=== PATIENT | male | born 1940 | race Caucasian/White ===

== ENCOUNTER 2017-11-15 20:58 | Emergency (ER) | payer MEDICARE, BC ==
[2017-11-15 21:05] VITALS: RESP 18
[2017-11-15] MEDS ORDERED: IBUPROFEN 600 MG TAB PO STA (21:29)
[2017-11-15] MEDS ORDERED: SODIUM CHLORIDE 0.9% 500 ML IV STA (21:29)
[2017-11-15] MEDS ORDERED: SODIUM CHLORIDE 0.9% 1,000 ML IV STA ×2 (21:29)
[2017-11-15] MEDS: ACETAMINOPHEN TAB 500 MG TAB PO STA ×2 (21:42→21:43)
[2017-11-15 21:54] LABS: Basophils # (A) 0.1 k/uL (0-0.2); Basophils % (A) 1 %; Eosinophils % (A) 0 %; HCT 48.1 % (39.0-53.0); Lymphocytes # (A) 0.6 k/uL (1.0-4.8); Lymphocytes % (A) 6 %; MCH 30.3 pg (25.0-35.0); MCHC 33.1 g/dL (31.0-37.0); MCV 91.3 fL (80.0-100.0); Mean Platelet Volume 7.4; Monocytes # (A) 0.6 k/uL (0-1.0); Monocytes % (A) 7 %; Neutrophils # (A) 7.5 k/uL (1.3-7.7); Neutrophils % (A) 83 %; Platelet Count 135 k/uL (150-450); RBC 5.27 m/uL (4.30-5.90); RDW 15.6 % (11.5-15.5)
--- NOTE | 2017-11-15 22:00 | XR ---
EXAMINATION: XR chest 2V DATE AND TIME: 11/15/2017 9:55 PM ORDERING PROVIDER: Anjum Abdi DO CLINICAL INDICATION: Weakness TECHNIQUE: PA and lateral COMPARISON: None. DESCRIPTION: Sternal sutures and mediastinal clips and cardiac valve prosthesis noted. The lungs are clear. The pleural spaces are negative. The cardiac silhouette is mildly enlarged. The mediastinal silhouette is notable for tortuosity of th e thoracic aorta. The skeletal structures are intact without focal findings. The soft tissues are unremarkable. IMPRESSION: NO ACUTE PROCESS.
[2017-11-15 22:03] LABS: ALT 66 U/L (21-72); AST 69 U/L (17-59); Alkaline Phosphatase 62 U/L (38-126); Anion Gap 10 mmol/L; Blood Urea Nitrogen 24 mg/dL (9-20); Calcium 9.4 mg/dL (8.4-10.2); Carbon Dioxide 22 mmol/L (22-30); Chloride 105 mmol/L (98-107); Glucose 113 mg/dL (74-99); Magnesium 2.2 mg/dL (1.6-2.3); Phosphorus 3.2 mg/dL (2.5-4.5); Potassium 4.3 mmol/L (3.5-5.1); Sodium 137 mmol/L (137-145); Total Bilirubin 0.9 mg/dL (0.2-1.3); Total Protein 7.1 g/dL (6.3-8.2)
--- NOTE | 2017-11-15 22:04 | ED ---
General Adult HPI - General Chief complaint: Weakness Stated complaint: Weakness Time Seen by Provider: 11/15/17 21:19 Source: patient Mode of arrival: wheelchair Limitations: no limitations - Related Data Home Medications Medication Instructions Recorded Confirmed Sumit Cavanaugha 450 mg PO DAILY 11/15/17 11/15/17 Ezetimibe [Zetia] 10 mg PO HS 11/15/17 11/15/17 Lisinopril [Zestril] 5 mg PO HS 11/15/17 11/15/17 Multivitamins, Thera [Multivitamin 1 tab PO DAILY 11/15/17 11/15/17 (formulary)] Previous Rx's Medication Instructions Recorded Acetaminophen Tab [Tylenol Tab] 500 mg PO Q6H PRN #60 tablet 11/15/17 Acetaminophen with Codeine 1 tab PO Q4H PRN #20 tab 11/15/17 [Tylenol w/codeine #3] Ibuprofen [Motrin] 600 mg PO Q8HR PRN #20 tab 11/15/17 Allergies Allergy/AdvReac Type Severity Reaction Status Date / Time Penicillins Allergy Unknown Verified 11/15/17 21:25 Review of Systems ROS Statement: Those systems with pertinent positive or pertinent negative responses have been documented in the HPI. ROS Other: All systems not noted in ROS Statement are negative. Past Medical History Past Medical History: Hypertension Additional Past Medical History / Comment(s): aortic aneursym, gout. History of Any Multi-Drug Resistant Organisms: None Reported Past Surgical History: Coronary Bypass/CABG Additional Past Surgical History / Comment(s): back, valve replacement. Past Psychological History: No Psychological Hx Reported Smoking Status: Former smoker Past Alcohol Use History: Rare Past Drug Use History: None Reported General Exam Limitations: no limitations Course Vital Signs 11/15/17 11/15/17 11/15/17 21:00 22:45 22:54 Temperature 102.7 F H 99.6 F Pulse Rate 108 H 98 Pulse Rate [ 98 [place] Person ] Respiratory 18 18 Rate Blood Pressure 120/79 128/78 O2 Sat by Pulse 93 L 97 Oximetry EKG Findings - EKG Comments: EKG Findings:: EKG shows normal sinus rhythm rate of 94, NE 150, QRS 94, QTc 442 Medical Decision Making - Lab Data Result diagrams: 11/15/17 21:44 11/15/17 21:44 Lab Results 11/15/17 11/15/17 11/15/17 Range/Units 21:44 21:44 21:44 WBC 9.0 (3.8-10.6) k/uL RBC 5.27 (4.30-5.90) m/uL Hgb 16.0 (13.0-17.5) gm/dL Hct 48.1 (39.0-53.0) % MCV 91.3 (80.0-100.0) fL MCH 30.3 (25.0-35.0) pg MCHC 33.1 (31.0-37.0) g/dL RDW 15.6 H (11.5-15.5) % Plt Count 135 L (150-450) k/uL Neutrophils % 83 % Lymphocytes % 6 % Monocytes % 7 % Eosinophils % 0 % Basophils % 1 % Neutrophils # 7.5 (1.3-7.7) k/uL Lymphocytes # 0.6 L (1.0-4.8) k/uL Monocytes # 0.6 (0-1.0) k/uL Eosinophils # 0.0 (0-0.7) k/uL Basophils # 0.1 (0-0.2) k/uL PT (9.0-12.0) sec INR (<1.2) APTT (22.0-30.0) sec Sodium 137 (137-145) mmol/L Potassium 4.3 (3.5-5.1) mmol/L Chloride 105 (98-107) mmol/L Carbon Dioxide 22 (22-30) mmol/L Anion Gap 10 mmol/L BUN 24 H (9-20) mg/dL Creatinine 1.16 (0.66-1.25) mg/dL Est GFR (MDRD) Af Amer >60 (>60 ml/min/1.73 sqM) Est GFR (MDRD) Non-Af >60 (>60 ml/min/1.73 sqM) Glucose 113 H (74-99) mg/dL Plasma Lactic Acid Tariq (0.7-2.0) mmol/L Calcium 9.4 (8.4-10.2) mg/dL Phosphorus 3.2 (2.5-4.5) mg/dL Magnesium 2.2 (1.6-2.3) mg/dL Total Bilirubin 0.9 (0.2-1.3) mg/dL AST 69 H (17-59) U/L ALT 66 (21-72) U/L Alkaline Phosphatase 62 (38-126) U/L Total Creatine Kinase 1444 H (55-170) U/L CK-MB (CK-2) 1.5 (0.0-2.4) ng/mL CK-MB (CK-2) Rel Index 0.1 Troponin I 0.028 (0.000-0.034) ng/mL Total Protein 7.1 (6.3-8.2) g/dL Albumin 4.0 (3.5-5.0) g/dL Urine Color Urine Appearance (Clear) Urine pH (5.0-8.0) Ur Specific Arnold (1.001-1.035) Urine Protein (Negative) Urine Glucose (UA) (Negative) Urine Ketones (Negative) Urine Blood (Negative) Urine Nitrite (Negative) Urine Bilirubin (Negative) Urine Urobilinogen (<2.0) mg/dL Ur Leukocyte Esterase (Negative) Urine RBC (0-5) /hpf Urine WBC (0-5) /hpf Hyaline Casts (0-2) /lpf Urine Mucus (None) /hpf Influenza Type A RNA (Not Detectd) Influenza Type B (PCR) (Not Detectd) 11/15/17 11/15/17 11/15/17 Range/Units 21:44 21:44 21:49 WBC (3.8-10.6) k/uL RBC (4.30-5.90) m/uL Hgb (13.0-17.5) gm/dL Hct (39.0-53.0) % MCV (80.0-100.0) fL MCH (25.0-35.0) pg MCHC (31.0-37.0) g/dL RDW (11.5-15.5) % Plt Count (150-450) k/uL Neutrophils % % Lymphocytes % % Monocytes % % Eosinophils % % Basophils % % Neutrophils # (1.3-7.7) k/uL Lymphocytes # (1.0-4.8) k/uL Monocytes # (0-1.0) k/uL Eosinophils # (0-0.7) k/uL Basophils # (0-0.2) k/uL PT 10.6 (9.0-12.0) sec INR 1.1 (<1.2) APTT 23.8 (22.0-30.0) sec Sodium (137-145) mmol/L Potassium (3.5-5.1) mmol/L Chloride (98-107) mmol/L Carbon Dioxide (22-30) mmol/L Anion Gap mmol/L BUN (9-20) mg/dL Creatinine (0.66-1.25) mg/dL Est GFR (MDRD) Af Amer (>60 ml/min/1.73 sqM) Est GFR (MDRD) Non-Af (>60 ml/min/1.73 sqM) Glucose (74-99) mg/dL Plasma Lactic Acid Tariq 1.9 (0.7-2.0) mmol/L Calcium (8.4-10.2) mg/dL Phosphorus (2.5-4.5) mg/dL Magnesium (1.6-2.3) mg/dL Total Bilirubin (0.2-1.3) mg/dL AST (17-59) U/L ALT (21-72) U/L Alkaline Phosphatase (38-126) U/L Total Creatine Kinase (55-170) U/L CK-MB (CK-2) (0.0-2.4) ng/mL CK-MB (CK-2) Rel Index Troponin I (0.000-0.034) ng/mL Total Protein (6.3-8.2) g/dL Albumin (3.5-5.0) g/dL Urine Color Urine Appearance (Clear) Urine pH (5.0-8.0) Ur Specific Arnold (1.001-1.035) Urine Protein (Negative) Urine Glucose (UA) (Negative) Urine Ketones (Negative) Urine Blood (Negative) Urine Nitrite (Negative) Urine Bilirubin (Negative) Urine Urobilinogen (<2.0) mg/dL Ur Leukocyte Esterase (Negative) Urine RBC (0-5) /hpf Urine WBC (0-5) /hpf Hyaline Casts (0-2) /lpf Urine Mucus (None) /hpf Influenza Type A RNA Detected H (Not Detectd) Influenza Type B (PCR) Not Detected (Not Detectd) 11/15/17 Range/Units 22:32 WBC (3.8-10.6) k/uL RBC (4.30-5.90) m/uL Hgb (13.0-17.5) gm/dL Hct (39.0-53.0) % MCV (80.0-100.0) fL MCH (25.0-35.0) pg MCHC (31.0-37.0) g/dL RDW (11.5-15.5) % Plt Count (150-450) k/uL Neutrophils % % Lymphocytes % % Monocytes % % Eosinophils % % Basophils % % Neutrophils # (1.3-7.7) k/uL Lymphocytes # (1.0-4.8) k/uL Monocytes # (0-1.0) k/uL Eosinophils # (0-0.7) k/uL Basophils # (0-0.2) k/uL PT (9.0-12.0) sec INR (<1.2) APTT (22.0-30.0) sec Sodium (137-145) mmol/L Potassium (3.5-5.1) mmol/L Chloride (98-107) mmol/L Carbon Dioxide (22-30) mmol/L Anion Gap mmol/L BUN (9-20) mg/dL Creatinine (0.66-1.25) mg/dL Est GFR (MDRD) Af Amer (>60 ml/min/1.73 sqM) Est GFR (MDRD) Non-Af (>60 ml/min/1.73 sqM) Glucose (74-99) mg/dL Plasma Lactic Acid Tariq (0.7-2.0) mmol/L Calcium (8.4-10.2) mg/dL Phosphorus (2.5-4.5) mg/dL Magnesium (1.6-2.3) mg/dL Total Bilirubin (0.2-1.3) mg/dL AST (17-59) U/L ALT (21-72) U/L Alkaline Phosphatase (38-126) U/L Total Creatine Kinase (55-170) U/L CK-MB (CK-2) (0.0-2.4) ng/mL CK-MB (CK-2) Rel Index Troponin I (0.000-0.034) ng/mL Total Protein (6.3-8.2) g/dL Albumin (3.5-5.0) g/dL Urine Color Yellow Urine Appearance Clear (Clear) Urine pH 5.5 (5.0-8.0) Ur Specific Arnold 1.026 (1.001-1.035) Urine Protein Trace H (Negative) Urine Glucose (UA) Negative (Negative) Urine Ketones Negative (Negative) Urine Blood Small H (Negative) Urine Nitrite Negative (Negative) Urine Bilirubin Negative (Negative) Urine Urobilinogen <2.0 (<2.0) mg/dL Ur Leukocyte Esterase Negative (Negative) Urine RBC <1 (0-5) /hpf Urine WBC 3 (0-5) /hpf Hyaline Casts 2 (0-2) /lpf Urine Mucus Many H (None) /hpf Influenza Type A RNA (Not Detectd) Influenza Type B (PCR) (Not Detectd) Disposition Clinical Impression: Influenza A, Fever Disposition: HOME SELF-CARE Condition: Good Instructions: Fever in Adults (ED), Influenza (ED) Prescriptions: Acetaminophen Tab [Tylenol Tab] 500 mg PO Q6H PRN #60 tablet PRN Reason: Fever Acetaminophen with Codeine [Tylenol w/codeine #3] 1 tab PO Q4H PRN #20 tab PRN Reason: Pain Ibuprofen [Motrin] 600 mg PO Q8HR PRN #20 tab PRN Reason: Fever Referrals: Marquita Hendricks DO [Primary Care Provider] - 1-2 days
[2017-11-15 22:05] LABS: INR 1.1 (<1.2); Partial Thromboplastin Time 23.8 sec (22.0-30.0); Prothrombin Time 10.6 sec (9.0-12.0)
[2017-11-15 22:32] LABS: Creatine Kinase MB 1.5 ng/mL (0.0-2.4); Troponin I 0.028 ng/mL (0.000-0.034)
[2017-11-15 22:46] LABS: Appearance,Urine Clear (Clear); Bilirubin,Urine Negative (Negative); Blood,Urine Small (Negative); Color,Urine Yellow; Glucose,Urine (UA) Negative (Negative); Hyaline Casts,Urine 2 /lpf (0-2); Ketones,Urine Negative (Negative); Leukocyte Esterase,Urine Negative (Negative); Mucus,Urine Many /hpf; Nitrite,Urine Negative (Negative); PH, Urine 5.5 (5.0-8.0); Protein,Urine Trace (Negative); RBC,Urine <1 /hpf (0-5); Specific Gravity,Urine 1.026 (1.001-1.035); Urobilinogen,Urine <2.0 mg/dL (<2.0); WBC,Urine 3 /hpf (0-5)
[2017-11-15] MEDS ORDERED: OSELTAMIVIR 75 MG CAP PO STA (23:20)
[2017-11-15] MEDS ORDERED: DEXAMETHASONE SOD PHOSPHATE 10 MG/ML 1 ML VIAL IM STA (23:21)
--- NOTE | 2017-11-15 23:28 | ED ---
General Adult HPI - General Chief complaint: Weakness Stated complaint: Weakness Time Seen by Provider: 11/15/17 21:19 Source: patient, RN notes reviewed, old records reviewed Mode of arrival: wheelchair Limitations: no limitations - History of Present Illness Initial comments: This is a 76-year-old male the ER for evaluation today. Patient's presented today for evaluation regards to weakness, fever, not febrile. 2 days of cough and congestion, increased muscle pains and body aches today. No travel history no known sick contacts. States he knew he had a favorable was unsure of how high. No modifying factors for symptoms. Patient's has a increasing weakness and decreased appetite. - Related Data Home Medications Medication Instructions Recorded Confirmed [place] 450 mg PO DAILY 11/15/17 11/15/17 Ezetimibe [Zetia] 10 mg PO HS 11/15/17 11/15/17 Lisinopril [Zestril] 5 mg PO HS 11/15/17 11/15/17 Multivitamins, Thera [Multivitamin 1 tab PO DAILY 11/15/17 11/15/17 (formulary)] Previous Rx's Medication Instructions Recorded Acetaminophen Tab [Tylenol Tab] 500 mg PO Q6H PRN #60 tablet 11/15/17 Acetaminophen with Codeine 1 tab PO Q4H PRN #20 tab 11/15/17 [Tylenol w/codeine #3] Ibuprofen [Motrin] 600 mg PO Q8HR PRN #20 tab 11/15/17 Allergies Allergy/AdvReac Type Severity Reaction Status Date / Time Penicillins Allergy Unknown Verified 11/15/17 21:25 Review of Systems ROS Statement: Those systems with pertinent positive or pertinent negative responses have been documented in the HPI. ROS Other: All systems not noted in ROS Statement are negative. Past Medical History Past Medical History: Hypertension Additional Past Medical History / Comment(s): aortic aneursym, gout. History of Any Multi-Drug Resistant Organisms: None Reported Past Surgical History: Coronary Bypass/CABG Additional Past Surgical History / Comment(s): back, valve replacement. Past Psychological History: No Psychological Hx Reported Smoking Status: Former smoker Past Alcohol Use History: Rare Past Drug Use History: None Reported General Exam Limitations: no limitations General appearance: alert, in no apparent distress Head exam: Present: atraumatic, normocephalic, normal inspection Eye exam: Present: normal appearance, PERRL, EOMI. Absent: scleral icterus, conjunctival injection, periorbital swelling ENT exam: Present: normal exam, mucous membranes moist Neck exam: Present: normal inspection. Absent: tenderness, meningismus, lymphadenopathy Respiratory exam: Present: normal lung sounds bilaterally. Absent: respiratory distress, wheezes, rales, rhonchi, stridor Cardiovascular Exam: Present: normal rhythm, tachycardia, normal heart sounds. Absent: systolic murmur, diastolic murmur, rubs, gallop, clicks GI/Abdominal exam: Present: soft, normal bowel sounds. Absent: distended, tenderness, guarding, rebound, rigid Extremities exam: Present: normal inspection, full ROM, normal capillary refill. Absent: tenderness, pedal edema, joint swelling, calf tenderness Back exam: Present: normal inspection Neurological exam: Present: alert, oriented X3, CN II-XII intact Psychiatric exam: Present: normal affect, normal mood Skin exam: Present: warm, dry, intact, normal color. Absent: rash Course Vital Signs 11/15/17 11/15/17 11/15/17 21:00 22:45 22:54 Temperature 102.7 F H 99.6 F Pulse Rate 108 H 98 Pulse Rate [ 98 [place] ] Respiratory 18 18 Rate Blood Pressure 120/79 128/78 O2 Sat by Pulse 93 L 97 Oximetry - Reevaluation(s) Reevaluation #1: 11/15/17 23:25 Patient is feeling much better, stronger here with IV fluids and fever control. Medical Decision Making - Medical Decision Making 76 male to the ER for evaluation of positive fever and weakness, muscle pain. Positive influenza. Patient given steroid shot, fever control and IV fluid here in the ER, feeling warm this time. Patient states he would like to be discharged home. - Lab Data Result diagrams: 11/15/17 21:44 11/15/17 21:44 Lab Results 11/15/17 11/15/17 11/15/17 Range/Units 21:44 21:44 21:44 WBC 9.0 (3.8-10.6) k/uL RBC 5.27 (4.30-5.90) m/uL Hgb 16.0 (13.0-17.5) gm/dL Hct 48.1 (39.0-53.0) % MCV 91.3 (80.0-100.0) fL MCH 30.3 (25.0-35.0) pg MCHC 33.1 (31.0-37.0) g/dL RDW 15.6 H (11.5-15.5) % Plt Count 135 L (150-450) k/uL Neutrophils % 83 % Lymphocytes % 6 % Monocytes % 7 % Eosinophils % 0 % Basophils % 1 % Neutrophils # 7.5 (1.3-7.7) k/uL Lymphocytes # 0.6 L (1.0-4.8) k/uL Monocytes # 0.6 (0-1.0) k/uL Eosinophils # 0.0 (0-0.7) k/uL Basophils # 0.1 (0-0.2) k/uL PT (9.0-12.0) sec INR (<1.2) APTT (22.0-30.0) sec Sodium 137 (137-145) mmol/L Potassium 4.3 (3.5-5.1) mmol/L Chloride 105 (98-107) mmol/L Carbon Dioxide 22 (22-30) mmol/L Anion Gap 10 mmol/L BUN 24 H (9-20) mg/dL Creatinine 1.16 (0.66-1.25) mg/dL Est GFR (MDRD) Af Amer >60 (>60 ml/min/1.73 sqM) Est GFR (MDRD) Non-Af >60 (>60 ml/min/1.73 sqM) Glucose 113 H (74-99) mg/dL Plasma Lactic Acid Tariq (0.7-2.0) mmol/L Calcium 9.4 (8.4-10.2) mg/dL Phosphorus 3.2 (2.5-4.5) mg/dL Magnesium 2.2 (1.6-2.3) mg/dL Total Bilirubin 0.9 (0.2-1.3) mg/dL AST 69 H (17-59) U/L ALT 66 (21-72) U/L Alkaline Phosphatase 62 (38-126) U/L Total Creatine Kinase 1444 H (55-170) U/L CK-MB (CK-2) 1.5 (0.0-2.4) ng/mL CK-MB (CK-2) Rel Index 0.1 Troponin I 0.028 (0.000-0.034) ng/mL Total Protein 7.1 (6.3-8.2) g/dL Albumin 4.0 (3.5-5.0) g/dL Urine Color Urine Appearance (Clear) Urine pH (5.0-8.0) Ur Specific Carrington (1.001-1.035) Urine Protein (Negative) Urine Glucose (UA) (Negative) Urine Ketones (Negative) Urine Blood (Negative) Urine Nitrite (Negative) Urine Bilirubin (Negative) Urine Urobilinogen (<2.0) mg/dL Ur Leukocyte Esterase (Negative) Urine RBC (0-5) /hpf Urine WBC (0-5) /hpf Hyaline Casts (0-2) /lpf Urine Mucus (None) /hpf Influenza Type A RNA (Not Detectd) Influenza Type B (PCR) (Not Detectd) 11/15/17 11/15/17 11/15/17 Range/Units 21:44 21:44 21:49 WBC (3.8-10.6) k/uL RBC (4.30-5.90) m/uL Hgb (13.0-17.5) gm/dL Hct (39.0-53.0) % MCV (80.0-100.0) fL MCH (25.0-35.0) pg MCHC (31.0-37.0) g/dL RDW (11.5-15.5) % Plt Count (150-450) k/uL Neutrophils % % Lymphocytes % % Monocytes % % Eosinophils % % Basophils % % Neutrophils # (1.3-7.7) k/uL Lymphocytes # (1.0-4.8) k/uL Monocytes # (0-1.0) k/uL Eosinophils # (0-0.7) k/uL Basophils # (0-0.2) k/uL PT 10.6 (9.0-12.0) sec INR 1.1 (<1.2) APTT 23.8 (22.0-30.0) sec Sodium (137-145) mmol/L Potassium (3.5-5.1) mmol/L Chloride (98-107) mmol/L Carbon Dioxide (22-30) mmol/L Anion Gap mmol/L BUN (9-20) mg/dL Creatinine (0.66-1.25) mg/dL Est GFR (MDRD) Af Amer (>60 ml/min/1.73 sqM) Est GFR (MDRD) Non-Af (>60 ml/min/1.73 sqM) Glucose (74-99) mg/dL Plasma Lactic Acid Tariq 1.9 (0.7-2.0) mmol/L Calcium (8.4-10.2) mg/dL Phosphorus (2.5-4.5) mg/dL Magnesium (1.6-2.3) mg/dL Total Bilirubin (0.2-1.3) mg/dL AST (17-59) U/L ALT (21-72) U/L Alkaline Phosphatase (38-126) U/L Total Creatine Kinase (55-170) U/L CK-MB (CK-2) (0.0-2.4) ng/mL CK-MB (CK-2) Rel Index Troponin I (0.000-0.034) ng/mL Total Protein (6.3-8.2) g/dL Albumin (3.5-5.0) g/dL Urine Color Urine Appearance (Clear) Urine pH (5.0-8.0) Ur Specific [place]rington (1.001-1.035) Urine Protein (Negative) Urine Glucose (UA) (Negative) Urine Ketones (Negative) Urine Blood (Negative) Urine Nitrite (Negative) Urine Bilirubin (Negative) Urine Urobilinogen (<2.0) mg/dL Ur Leukocyte Esterase (Negative) Urine RBC (0-5) /hpf Urine WBC (0-5) /hpf Hyaline Casts (0-2) /lpf Urine Mucus (None) /hpf Influenza Type A RNA Detected H (Not Detectd) Influenza Type B (PCR) Not Detected (Not Detectd) 11/15/17 Range/Units 22:32 WBC (3.8-10.6) k/uL RBC (4.30-5.90) m/uL Hgb (13.0-17.5) gm/dL Hct (39.0-53.0) % MCV (80.0-100.0) fL MCH (25.0-35.0) pg MCHC (31.0-37.0) g/dL RDW (11.5-15.5) % Plt Count (150-450) k/uL Neutrophils % % Lymphocytes % % Monocytes % % Eosinophils % % Basophils % % Neutrophils # (1.3-7.7) k/uL Lymphocytes # (1.0-4.8) k/uL Monocytes # (0-1.0) k/uL Eosinophils # (0-0.7) k/uL Basophils # (0-0.2) k/uL PT (9.0-12.0) sec INR (<1.2) APTT (22.0-30.0) sec Sodium (137-145) mmol/L Potassium (3.5-5.1) mmol/L Chloride (98-107) mmol/L Carbon Dioxide (22-30) mmol/L Anion Gap mmol/L BUN (9-20) mg/dL Creatinine (0.66-1.25) mg/dL Est GFR (MDRD) Af Amer (>60 ml/min/1.73 sqM) Est GFR (MDRD) Non-Af (>60 ml/min/1.73 sqM) Glucose (74-99) mg/dL Plasma Lactic Acid Tariq (0.7-2.0) mmol/L Calcium (8.4-10.2) mg/dL Phosphorus (2.5-4.5) mg/dL Magnesium (1.6-2.3) mg/dL Total Bilirubin (0.2-1.3) mg/dL AST (17-59) U/L ALT (21-72) U/L Alkaline Phosphatase (38-126) U/L Total Creatine Kinase (55-170) U/L CK-MB (CK-2) (0.0-2.4) ng/mL CK-MB (CK-2) Rel Index Troponin I (0.000-0.034) ng/mL Total Protein (6.3-8.2) g/dL Albumin (3.5-5.0) g/dL Urine Color Yellow Urine Appearance Clear (Clear) Urine pH 5.5 (5.0-8.0) Ur Specific [place] 1.026 (1.001-1.035) Urine Protein Trace H (Negative) Urine Glucose (UA) Negative (Negative) Urine Ketones Negative (Negative) Urine Blood Small H (Negative) Urine Nitrite Negative (Negative) Urine Bilirubin Negative (Negative) Urine Urobilinogen <2.0 (<2.0) mg/dL Ur Leukocyte Esterase Negative (Negative) Urine RBC <1 (0-5) /hpf Urine WBC 3 (0-5) /hpf Hyaline Casts 2 (0-2) /lpf Urine Mucus Many H (None) /hpf Influenza Type A RNA (Not Detectd) Influenza Type B (PCR) (Not Detectd) - Radiology Data Radiology results: report reviewed (Chest x-ray is negative for acute disease), image reviewed Disposition Clinical Impression: Influenza A, Fever Disposition: HOME SELF-CARE Condition: Good Instructions: Fever in Adults (ED), Influenza (ED) Prescriptions: Acetaminophen Tab [Tylenol Tab] 500 mg PO Q6H PRN #60 tablet PRN Reason: Fever Acetaminophen with Codeine [Tylenol w/codeine #3] 1 tab PO Q4H PRN #20 tab PRN Reason: Pain Ibuprofen [Motrin] 600 mg PO Q8HR PRN #20 tab PRN Reason: Fever Referrals: Marquita Hendricks, [Primary Care Provider] - 1-2 days
[2017-11-15 23:44] VITALS: BP 126/76; PULSE 95; TEMP 99
== END 2017-11-15 23:43 | disposition home or self-care (01) ==
LOC: EC 20:58
DX: J10.1 Influenza due to other identified influenza virus with other respiratory manifestations (principal); R00.0 Tachycardia, unspecified; I10 Essential (primary) hypertension; Z87.891 Personal history of nicotine dependence; Z79.899 Other long term (current) drug therapy; Z88.0 Allergy status to penicillin
CPT/HCPCS: 36415; 93005; 80053; 82550; 82553; 83605; 83735; 84100; 84484; 85025; 85610; 85730; 81001; 87502; 71020; 99285; 96360; 96361; 96372; J1100

== ENCOUNTER → 2018-03-22 | Outpatient (CLI) | payer MEDICARE, BC | END | disposition home or self-care (01) | LOC: LABPAT 13:09 | PROVIDERS: ATTEND Orthopaedic Surgery | DX: Z01.812 Encounter for preprocedural laboratory examination (principal); M16.11 Unilateral primary osteoarthritis, right hip | CPT/HCPCS: 87070 ==

== ENCOUNTER 2018-04-01 05:38 | Inpatient (IN) | payer MEDICARE, BC ==
[2018-03-22 14:59] VITALS: BMI 30.5
--- NOTE | 2018-03-31 12:31 | HP ---
HISTORY AND PHYSICAL Surgery is scheduled for 04/01/2018. Deondre Driver is a 77-year-old patient seen with symptomatic right hip osteoarthritis. We discussed options for treatment. He elected to proceed with direct anterior right total hip arthroplasty. Consent regarding the procedure was obtained. Cardiac clearance was provided by Dr. Anna. PAST MEDICAL HISTORY: Hypertension, aortic aneurysm, cardio coronal artery disease. PAST SURGICAL HISTORY: Coronary artery bypass surgery, lumbar spine surgery, heart valve replacement surgery. DAILY MEDICATIONS: Lisinopril, Tylenol. ALLERGIES: PENICILLIN, STATINS. SOCIAL HISTORY: The patient denies current tobacco use. PHYSICAL EXAMINATION: Physical evaluation of the right hip: There is limited range of motion. Severe pain diffuse tenderness about the hip girdle. Positive hip impingement sign. Right lower extremity is approximately 1 cm shorter than the left. Straight leg raise negative. Distal neurovascular exam is intact. RADIOGRAPHS: Radiographs of the right hip reveals severe osteoarthritis. IMPRESSION: 1. Right hip osteoarthritis. 2. Hypertension. 3. Cardiovascular disease/coronary artery disease. PLAN: Direct anterior right total hip arthroplasty. MMODL / IJN: [id number] /
[~2018-04-01 05:38] MED LIST: ACETAMINOPHEN TAB 500 MG TAB PO ONE; LIDOCAINE 1% 20 ML VIAL (10MG/ML) FOR IV START INTRADERMA PRN; MELOXICAM 7.5 MG TAB PO ONE; MORPHINE SULFATE 2 MG/ML SYRINGE IV PRN; ONDANSETRON ODT 4 MG TAB PO ONE; TRANEXAMIC ACID 1,000 MG in SODIUM CHLORIDE 0.9% 100 ML IVPB ONE; ceFAZolin IN SWFI 2 GM/20 ML SYRINGE IVP ONE
[2018-04-01] MEDS: LACTATED RINGERS 1,000 ML IV SCH (06:52)
[2018-04-01] MEDS ORDERED: ONDANSETRON 4 MG/2 ML VIAL IVP ONE (07:05)
[2018-04-01] MEDS ORDERED: MIDAZOLAM 2 MG/2 ML VIAL ONE (07:26)
[2018-04-01] MEDS ORDERED: TRANEXAMIC ACID 1,000 MG/10 ML VIAL ONE (07:26)
[2018-04-01] MEDS ORDERED: fentaNYL (PF) 50 MCG/ML 2 ML AMP ONE (07:26)
[2018-04-01] MEDS ORDERED: SODIUM CHLORIDE 0.9% 100 ML BAG ONE (07:26)
[2018-04-01] MEDS ORDERED: PROPOFOL 10 MG/ML 20 ML VIAL IV ONE (07:26)
[2018-04-01] MEDS ORDERED: diphenhydrAMINE 50 MG/ML 1 ML VIAL ONE (07:26)
[2018-04-01] MEDS ORDERED: ePHEDrine SULFATE/0.9% NACL/PF 50 MG/5 ML SYRINGE IV ONE (07:26)
[2018-04-01] MEDS ORDERED: CLINDAMYCIN 1,800 MG in SODIUM CHLORIDE 0.9% IRRIGATIO 3,000 ML IRRIGATION ONE (08:13)
[2018-04-01] MEDS: ROPIVACAINE 246.25 MG, EPINEPHrine 0.5 MG, KETOROLAC 30 MG, cloNIDine HCL/PF 80 MCG, WA... MISCELLANE ONE ×10 (08:13→09:24)
[2018-04-01] MEDS ORDERED: LACTATED RINGERS 1,000 ML IV ONE (09:09)
--- NOTE | 2018-04-01 09:39 | XR ---
EXAMINATION TYPE: XR Hip Limited RT DATE OF EXAM: 04/01/2018 COMPARISON: NONE HISTORY: Hip replacement TECHNIQUE: One view submitted. FINDINGS: There is a prosthetic hip in near anatomic alignment. There is soft tissue edema and emphysema. IMPRESSION: 1. Postoperative change. Appears in near-anatomic alignment.
[2018-04-01] MEDS ORDERED: hydrOXYzine PAMOATE 25 MG CAP PO PRN (09:52)
[2018-04-01] MEDS ORDERED: MORPHINE SULFATE 4 MG/ML SYRINGE IVP PRN ×3 (09:52)
[2018-04-01] MEDS ORDERED: NALOXONE 0.4 MG/ML 1 ML VIAL IV PRN (09:52)
[2018-04-01] MEDS ORDERED: ONDANSETRON 4 MG/2 ML VIAL IVP PRN (09:52)
[2018-04-01] MEDS ORDERED: HYDROcodone/APAP 7.5-325MG 1 EACH TAB PO PRN (09:52)
--- NOTE | 2018-04-01 09:52 | P.OP ---
Date of Procedure: 04/01/18 Preoperative Diagnosis: Right hip osteoarthritis Postoperative Diagnosis: Right hip osteoarthritis Procedure(s) Performed: Direct anterior right total hip arthroplasty Implants: 1. Depuy Corail KA size 14 standard collar press-fit femoral stem 2. Depuy pinnacle acetabular shell press-fit 58 mm 3. Depuy pinnacle polyethylene acetabular liner +4 neutral 36 mm ID 58 mm OD 4. Depuy metal metal femoral head 36 mm -2 Anesthesia: regional (Fascia iliaca block), local, spinal Surgeon: Arun Cortes Estimated Blood Loss (ml): 300 Pathology: none sent Condition: stable Disposition: PACU Indications for Procedure: 77-year-old patient seen with symptomatic right hip osteoarthritis. After options regarding treatment were discussed, he elected to proceed with total hip arthroplasty. Operative Findings: see description of procedure Description of Procedure: The patient was taken to the operative suite after having undergone a fascia iliaca block by the department of anesthesia. Patient underwent a spinal anesthetic by the department of anesthesia. Patient was then transferred to the [place] table. Patient was given preoperative IV antibiotics and TXA. Both lower extremities were placed in standard leg spars. The hip was then prepped and draped in the normal sterile orthopedic fashion. A standard anterior incision was made beginning 3 cm lateral and 1 cm distal to the ASIS extending 10 cm. Dissection was then carried down through the subcutaneous soft tissues down to the fascia overlying the tensor fascia andreea. An incision was now made through the fascia. Careful dissection was taken down exposing the tensor fascia andreea muscle. A Cobra retractor was now placed along the medial femoral neck and a second one along the lateral femoral neck. The venous circumflex vessels were now identified, cauterized and clipped. We identified the anterior hip capsule. An incision was made through the hip capsule along the lateral border. Tag sutures were then placed along the anterior capsule and lateral capsule. We then performed a capsulotomy. Retractors were now placed around the femoral neck itself. A Cobra retractor was now placed along the anterior acetabulum. Good exposure was now noted of the femoral head/neck complex. Residual labrum was debrided out. We placed the extremity into 3 turns of fine traction. We were then able to introduce a skid in between the femoral head and acetabulum. A placed a awl into the femoral head. We took 2 turns of traction off the extremity. Rotation was now released. The femoral head was then dislocated without difficulty. Additional releasing was performed of the capsule. The head was then reduced. All traction was released. A femoral neck cut was now made with a sagittal saw. It was completed with an osteotome at the lateral neck area. The femoral head was now removed without difficulty. The extremity was now rotated to 60 of external rotation. It was locked in position. Residual labrum was now debrided out. Serial reaming was performed of the acetabulum. Once we reached the appropriate size and a trial was position and fit nicely. The appropriate size was now chosen opened and made available. The wound was irrigated with pulse lavage mechanical irrigation. The acetabular cup was introduced into the acetabulum without difficulty. The C-arm/fluoroscopy was now brought into the operative field. We made sure we had a true AP pelvic view. We now under direct C-arm/fluoroscopy introduced into the acetabular component with appropriate version and inclination. It was well seated and stable. The C-arm was pulled back. An appropriate liner was introduced and clicked into position. It was felt to be stable. At this point retractors were removed. The extremity was now placed into 120 external rotation with no traction. The leg was now dropped to the ground and adducted. Appropriate retractors were now positioned along the proximal femur. We also placed our femoral look into position. Additional capsular releasing was performed to gain access to the proximal femur. We now used a box osteotome. A canal finder was now utilized. Serial broaching was now performed until we reached the appropriate size with good overall rotational stability. Appropriate calcar planing was performed. A trial head/neck was placed into position. The hip was now reduced. The C-arm /fluoroscopy was brought back into the operative field. A spot film was obtained of the nonoperative hip. A spot film was obtained of the trial components. Overlays were performed, we noted good overall alignment and positioning for determining leg length. The C-arm/fluoroscopy was pulled back. Retractors were repositioned and the hip was dislocated. The leg was again taken down to the ground and adducted. Appropriate retractors were repositioned as well as the femoral hook. All trial components were removed. The femoral implant was opened along with the femoral head. The wound was irrigated with pulse lavage mechanical irrigation. The deep soft tissues were infiltrated with local analgesic. The femoral implant was introduced with good purchase and fixation noted. The femoral head was introduced with good positioning and fixation noted. Retractors were now removed. The hip was now reduced. There appeared be good positioning of the hip. This was confirmed under fluoroscopy and spot films were obtained to document that. A second gram of TXA was given. Additional local analgesic was utilized at this point the deep soft tissues and superficial soft tissues. Bipolar cautery had been utilized intermittently through the procedure for hemostasis. The wound was irrigated copiously with pulse lavage mechanical irrigation. The fascia was repaired with Vicryl suture. The subcutaneous soft tissues were repaired in layers with Vicryl suture. The skin was approximated with pernio/Dermabond. Sterile dressings were applied. Patient was then awakened, transferred to a bed and taken to recovery in stable condition. Yuri FUENTES assisted with the procedure.
--- NOTE | 2018-04-01 09:58 | FL ---
EXAMINATION TYPE: FL guidance operating room DATE OF EXAM: 04/01/2018 CLINICAL HISTORY: Right hip pain TECHNIQUE: Fluoroscopy. COMPARISON: None. FINDINGS/IMPRESSION: Fluoroscopic guidance was provided during procedure performed by Dr. Cortes. A total of 26 seconds of fluoroscopic time was utilized during the procedure and 1 spot images was acquired demonstrating a right hip arthroplasty.
[2018-04-01] MEDS: SODIUM CHLORIDE 0.9% 1,000 ML IV SCH (12:14)
--- NOTE | 2018-04-01 13:05 | P.CONS ---
History of Present Illness - Reason for Consult Consult date: 04/01/18 medical management Requesting physician: Arun Cortes - Chief Complaint elective right total hip arthroplasty - History of Present Illness 77 year old male with history of CAD. Patient presented electively for right total hip arthroplasty due to severe arthritis of the right hip debilitating pain in severe limitations in activities of daily living. This was not responsive to conservative measures. Patient elected to have surgical repair is done. Patient tolerated procedure well today no observed immediate complications, patient had continued to take aspirin perioperatively. Currently he is tolerating diet very well denies any nausea or vomiting, denies any chest pain or trouble breathing, patient did not pass urine yet or bowel movement or gases. Patient reports that pain is well controlled and tolerated. Review of Systems Constitutional: Patient denies fever, denies chills, denies night sweating, denies significant weight changes Eyes: Patient denies visual changes, denies eye pain ENT: Patient denies ear pain, denies rhinorrhea, denies sore throat Cardiovascular: Patient denies chest pain, denies exertional dyspnea, denies peripheral leg edema, denies orthopnea, denies paroxysmal nocturnal dyspnea Respiratory:Patient denies cough, denies wheezing, denies shortness of breath Gastrointestinal: Patient denies diarrhea, denies constipation, denies nausea , denies vomiting, denies abdominal pain Genitourinary: Patient denies dysuria, denies hematuria, denies changes in urinary habits, denies genital lesions Musculoskeletal: Patient denies muscle pain, reports right hip arthritis Psychiatric: Patient denies changes in mood or memory, denies suicidal ideation, denies anxiety Endocrine: Patient denies heat intolerance, denies cold intolerance, denies excessive thirst, denies polyuria Neurological: Patient denies focal neurologic deficits, denies weakness, denies numbness, denies tingling Hem/Lymphatic: Patient denies bleeding tendency, denies bruising, denies swollen lymph glands Allergic/Immun: Patient denies recent allergic reactions Skin: Patient denies rashes, denies pruritis, denies ulcers Past Medical History Past Medical History: Hyperlipidemia, Hypertension, Osteoarthritis (OA) Additional Past Medical History / Comment(s): hx. aortic aneursym, gout. History of Any Multi-Drug Resistant Organisms: None Reported Past Surgical History: Back Surgery, Coronary Bypass/CABG, Orthopedic Surgery Additional Past Surgical History / Comment(s): aortic valve replacement, thoracic aortic aneurysm repair, carpal tunnel, cataracts removed, TRHA Past Anesthesia/Blood Transfusion Reactions: No Reported Reaction Past Psychological History: No Psychological Hx Reported Smoking Status: Former smoker Past Alcohol Use History: Rare Additional Past Alcohol Use History / Comment(s): quit smoking @age of 35, smoked for 10 yrs. 1ppd Past Drug Use History: None Reported - Past Family History Brother(s) Family Medical History: Cancer Medications and Allergies Home Medications Medication Instructions Recorded Confirmed Type Cascara [place] 450 mg PO DAILY PRN 11/15/17 04/01/18 History Ezetimibe [Zetia] 10 mg PO HS 11/15/17 04/01/18 History Lisinopril [Zestril] 5 mg PO HS 11/15/17 04/01/18 History Multivitamins, Thera [Multivitamin 1 tab PO DAILY 11/15/17 04/01/18 History (formulary)] Acetaminophen Tab [Tylenol Tab] 500 mg PO Q6H PRN 03/22/18 04/01/18 History Full Spectrum Mineral Cap 1 tab PO DAILY 03/22/18 04/01/18 History Allergies Allergy/AdvReac Type Severity Reaction Status Date / Time Penicillins Allergy Itching Verified 04/01/18 12:54 Physical Exam Vitals: Vital Signs Temp Pulse Pulse Resp BP Pulse Ox 04/01/18 11:00 53 L 18 107/60 98 04/01/18 10:45 56 L 18 102/58 96 04/01/18 10:31 56 L 18 99/54 97 04/01/18 10:15 56 L 18 109/57 99 04/01/18 09:55 97 F L 59 L 16 89/53 96 04/01/18 06:51 98.1 F 64 16 135/81 98 Intake and Output 03/31/18 04/01/18 04/01/18 22:59 06:59 14:59 Intake Total 200 1501 Output Total 300 Balance 200 1201 Intake: IV 200 1501 Output: Estimated Blood Loss 300 Other: Weight 102.058 kg Constitutional: No acute distress, conversant, pleasant Eyes: Anicteric sclerae, moist conjunctiva, no lid-lag Pupils equal round reactive to light ENMT: NC/AT Oropharynx clear, no erythema, or exudates Neck: Supple, FROM, no masses, or JVD No carotid bruits No thyromegaly Lungs: Clear to auscultation Clear to percussion Normal respiratory effort, no accessory muscle use Cardiovascular: Heart regular in rate and rhythm, + Systolic murmur, no gallops, or rubs No peripheral edema Abdominal: Soft Nontender, no guarding, rebound or rigidity Abdomen moving with respiration Normoactive bowel sounds No hepatomegaly, No splenomegaly No palpable mass No abdominal wall hernia noted Skin: Normal temperature, tone, texture, turgor No induration No subcutaneous nodules No rash, lesions No ulcers Extremities: No digital cyanosis No clubbing Pedal pulses intact and symmetrical Radial pulses intact and symmetrical No calf tenderness Psychiatric: Alert and oriented to person, place and time Appropriate affect fair judgment Neuro Muscles Strength 5/5 in all 4 extremities except for limited exam over the right lower extremity due to fear of pain and recent surgery Sensation to light touch grossly present throughout Cranial nerves II-XII grossly intact No focal sensory deficits Lymphatics: no palpable cervical or supraclavicular , or inguinal lymph nodes Assessment and Plan Assessment: 77-year-old male with history of hypertension, hyperlipidemia, CAD. Presented for elective right total hip arthroplasty due to severe arthritis not responding to conservative medical management. Medicine was consulted for postoperative medical management Plan: #Right hip arthritis, status post right total hip arthroplasty postoperative day 0 Patient tolerated procedure well DVT prophylaxis per orthopedics, on Lovenox Pain control #Hypertension currently controlled Low normal systolic blood pressure patient asymptomatic Continue with lisinopril 5 mg daily #CAD status post CABG #Hyperlipidemia Continue with aspirin and Zetia #Obesity Patient was counseled for less than medication weight loss #DVT prophylaxis Currently on Lovenox per orthopedics Follow-up labs CBC, BMP Thank you for allowing us to participate in the care of this patient. Do not hesitate to contact us with questions. Someone can be reached from the [facility] hospitalist group at all hours of the day at [phone].
[2018-04-01] MEDS ORDERED: ASPIRIN 81 MG PO SCH ×2 (13:30→21:00)
[2018-04-01] MEDS: traMADol 50 MG TAB PO SCH ×2 (14:04→18:19)
[2018-04-01] MEDS: ceFAZolin IN SWFI 2 GM/20 ML SYRINGE IVP SCH (15:19)
[2018-04-01] MEDS ORDERED: SENNOSIDES-DOCUSATE SODIUM 1 EACH TAB PO SCH (21:00)
[2018-04-01] MEDS ORDERED: EZETIMIBE 10 MG TAB PO SCH (21:00)
[2018-04-01] MEDS ORDERED: LISINOPRIL 5 MG TAB PO SCH (21:00)
[2018-04-01] MEDS: HYDROcodone/APAP 7.5-325MG 1 EACH TAB PO PRN (21:26)
[2018-04-02] MEDS: traMADol 50 MG TAB PO SCH ×2 (00:45→08:53)
[2018-04-02] MEDS: ceFAZolin IN SWFI 2 GM/20 ML SYRINGE IVP SCH (00:45)
[2018-04-02 01:04] VITALS: RESP 16
[2018-04-02] MEDS: SODIUM CHLORIDE 0.9% 1,000 ML IV SCH (05:29)
[2018-04-02] MEDS: LACTATED RINGERS 1,000 ML IV SCH (05:29)
[2018-04-02] MEDS: HYDROcodone/APAP 7.5-325MG 1 EACH TAB PO PRN (05:42)
[2018-04-02 07:30] LABS: Basophils % (A) 0 %; Eosinophils # (A) 0.3 k/uL (0-0.7); Eosinophils % (A) 3 %; HCT 38.3 % (39.0-53.0); HGB 12.5 gm/dL (13.0-17.5); Lymphocytes # (A) 0.9 k/uL (1.0-4.8); Lymphocytes % (A) 12 %; MCHC 32.7 g/dL (31.0-37.0); MCV 88.9 fL (80.0-100.0); Mean Platelet Volume 7.1; Monocytes # (A) 0.5 k/uL (0-1.0); Monocytes % (A) 6 %; Neutrophils # (A) 5.6 k/uL (1.3-7.7); Neutrophils % (A) 76 %; Platelet Count 116 k/uL (150-450); RBC 4.31 m/uL (4.30-5.90); WBC 7.4 k/uL (3.8-10.6)
[2018-04-02 07:58] LABS: Anion Gap 11 mmol/L; Blood Urea Nitrogen 19 mg/dL (9-20); Calcium 8.1 mg/dL (8.4-10.2); Carbon Dioxide 20 mmol/L (22-30); Chloride 104 mmol/L (98-107); Glucose 123 mg/dL (74-99); Potassium 4.7 mmol/L (3.5-5.1); Sodium 135 mmol/L (137-145)
[2018-04-02] MEDS ORDERED: ENOXAPARIN 40 MG/0.4 ML SYRINGE SQ SCH (09:00)
[2018-04-02] MEDS ORDERED: MELOXICAM 7.5 MG TAB PO SCH (09:00)
[2018-04-02] MEDS ORDERED: FAMOTIDINE 20 MG TAB PO SCH (09:00)
[2018-04-02] MEDS ORDERED: HYDROmorphone 2 MG TAB PO PRN ×3 (09:09→09:10)
[2018-04-02 09:16] VITALS: BP 118/77; PULSE 82; TEMP 96.9
--- NOTE | 2018-04-02 09:56 | P.PN ---
Subjective Progress Note Date: 04/02/18 Principal diagnosis: Patient is followed up for medical management postoperatively Patient seen and examined today, doing well participated with physical therapy reports the pain is well tolerated, tolerating by mouth intake, denies any nausea or vomiting. Denies any chest pain or trouble breathing. Patient is urinating with no problems Objective - Vital Signs Vital signs: Vital Signs Temp 96.9 F L 04/02/18 09:02 Pulse 82 04/02/18 09:02 Resp 16 04/02/18 09:02 BP 118/77 04/02/18 09:02 Pulse Ox 96 04/02/18 09:02 Intake & Output 04/01/18 04/02/18 04/02/18 18:59 06:59 18:59 Intake Total 1651 400 Output Total 300 125 Balance 1351 275 Weight 102.058 kg Intake: IV 1651 Sodium Chloride 0.9% 1, 150 000 ml @ 50 mls/hr IV . Q20H FARHANA Rx#:[id number] Intake, IV Titration 400 Amount Sodium Chloride 0.9% 1, 400 000 ml @ 50 mls/hr IV . Q20H FARHANA Rx#:[id number] Output: Urine 125 Estimated Blood Loss 300 Other: # Voids 2 Vital signs verified with the nurse, pulse ox actually 96% on room air - Exam Constitutional: vital signs stable, Not in acute distress, pleasant, conversant Lungs: Clear to auscultation bilaterally, clear to percussion, normal respiratory effort no use of accessory muscles Cardiovascular: Regular rate and rhythm, no murmurs, no gallops, no rubs, no peripheral edema Gastrointestinal: Soft, no tenderness to palpation, no palpable hepatosplenomegally, bowel sounds positive Extremities: No digital cyanosis or clubbing, peripheral pulses palpable and equal over bilateral radial arteries and dorsalis pedis artery, no calf muscle tenderness, surgical dressing over right hip is intact dry and clean, minimal ecchymosis over the medial aspect of the right thigh, otherwise thigh and leg is soft. Psych: Alert, oriented to place, person and time, appropriate affect, intact judgment - Labs CBC & Chem 7: 04/02/18 06:40 04/02/18 06:40 Labs: Abnormal Lab Results - Last 24 Hours (Table) 04/02/18 04/02/18 Range/Units 06:40 06:40 Hgb 12.5 L (13.0-17.5) gm/dL Hct 38.3 L (39.0-53.0) % Plt Count 116 L (150-450) k/uL Lymphocytes # 0.9 L (1.0-4.8) k/uL Sodium 135 L (137-145) mmol/L Carbon Dioxide 20 L (22-30) mmol/L Glucose 123 H (74-99) mg/dL Calcium 8.1 L (8.4-10.2) mg/dL Assessment and Plan Assessment: 77-year-old male with history of hypertension, hyperlipidemia, CAD. Presented for elective right total hip arthroplasty due to severe arthritis not responding to conservative medical management. Medicine was consulted for postoperative medical management Plan: #Right hip arthritis, status post right total hip arthroplasty postoperative day 1 Patient tolerated procedure well DVT prophylaxis per orthopedics, on Lovenox Pain control #Postoperative mild anemia asymptomatic, due to postoperative blood loss Continue to monitor outpatient #Hypertension currently controlled Continue with lisinopril 5 mg daily #CAD status post CABG #Hyperlipidemia Continue with aspirin and Zetia #Obesity Patient was counseled for weight loss and lifestyle modification #DVT prophylaxis Currently on Lovenox per orthopedics Labs reviewed Patient is stable from internal medicine standpoint for discharge follow-up with PCP in 3-5 days
--- NOTE | 2018-04-02 10:42 | P.PN ---
Subjective Progress Note Date: 04/02/18 Principal diagnosis: Status post right total hip arthroplasty Patient seen today resting in his hospital chair, he appears comfortable. Pain is well-controlled. He's ambulating well with therapy. He is urinating on his own without difficulty. He denies any headaches, lightheadedness, chest pain or shortness of breath. Objective - Vital Signs Vital signs: Vital Signs Temp 96.9 F L 04/02/18 09:02 Pulse 82 04/02/18 09:02 Resp 16 04/02/18 09:02 BP 118/77 04/02/18 09:02 Pulse Ox 82 L 04/02/18 09:02 Intake & Output 04/01/18 04/02/18 04/02/18 18:59 06:59 18:59 Intake Total 1651 400 Output Total 300 125 Balance 1351 275 Weight 102.058 kg Intake: IV 1651 Sodium Chloride 0.9% 1, 150 000 ml @ 50 mls/hr IV . Q20H FARHANA Rx#:[id number] Intake, IV Titration 400 Amount Sodium Chloride 0.9% 1, 400 000 ml @ 50 mls/hr IV . Q20H FARHANA Rx#:[id number] Output: Urine 125 Estimated Blood Loss 300 Other: # Voids 2 - Exam Right lower extremity: Incision is clean, dry, and intact. The prineo tape is in good condition. There is minimal soft tissue swelling and ecchymosis surrounding the medial and lateral aspects of the incision. Calf is soft, no tenderness with palpation. Plantar flexion, dorsiflexion, EHL, FHL are intact. Sensory exam to light touch throughout the extremity is intact, dorsal pedis pulses 2+. - Labs CBC & Chem 7: 04/02/18 06:40 04/02/18 06:40 Labs: Abnormal Lab Results - Last 24 Hours (Table) 04/02/18 04/02/18 Range/Units 06:40 06:40 Hgb 12.5 L (13.0-17.5) gm/dL Hct 38.3 L (39.0-53.0) % Plt Count 116 L (150-450) k/uL Lymphocytes # 0.9 L (1.0-4.8) k/uL Sodium 135 L (137-145) mmol/L Carbon Dioxide 20 L (22-30) mmol/L Glucose 123 H (74-99) mg/dL Calcium 8.1 L (8.4-10.2) mg/dL Assessment and Plan Plan: Assessment: 1. Postop day #1 status post right total hip arthroplasty Plan: Pain control, patient would like to use Tylenol, we'll try to avoid narcotics GI and DVT prophylaxis, aspirin 325 mg twice a day for a month Wound care instructions were discussed Medical recommendations Home therapy and nursing after discharge Patient will be discharged home today Time with Patient: Less than 30
--- NOTE | 2018-04-02 10:44 | P.DS ---
Providers Date of admission: 04/01/18 05:38 Expected date of discharge: 04/02/18 Attending physician: Arun Cortes Consults: 04/01/18 09:52 Consult Physician Routine Consulting Provider: Gely Garza Consult Reason/Comments: Medical management Do you want consulting provider notified?: Yes Primary care physician: Marquita Hendricks Hospital Course: Date of admission: 04/01/2015 Date of discharge: 04/02/2018 Admission diagnosis: Status post right total hip arthroplasty Discharge diagnosis: Same Attending physician: Dr. Cortes Surgical procedures: Right total hip arthroplasty Brief history: Patient is a 77-year-old male with a history of progressive primary right hip osteoarthritis. At this point patient has failed conservative treatment measures and has opted to proceed with a elective right total hip arthroplasty. Hospital course: Details of patient's surgery can be found in operative report. Patient tolerated the procedure well and was subsequently transported to orthopedic floor. Patient's orthopeidc and medical care was provided daily. Patient had daily laboratory tests performed for evaluation of overall blood counts. Patient had daily physical therapy to include strengthening range of motion as well as education with walker ambulation. Patient was treated with Lovenox for their postoperative DVT prophylaxis during their inpatient stay. Patient was noted to have a relatively uneventful postoperative course. Patient reported satisfactory pain control with oral pain medications by postoperative day 0. Patient showed satisfactory progress with physical therapy. Patient moved steadily through the program and had no difficulty meeting the goals by postoperative day 1. Given patient's otherwise satisfactory course and having met physical therapy goals, plan is to discharge patient home on postoperative day 1. Discharge condition/disposition: Patient will be discharged home in stable condition. Discharge medications: Instructions are given on resumption of patient's normal daily medications per primary care recommendation, in addition patient will be prescribed aspirin 325 mg/325 mg, [place] 7.5 mg/325 mg. Discharge instructions: 1. Wound care and infection precautions, keep incision dry and covered while showering, no lotions, creams, moisturizers. No soaking, tubs, pools, hottubs. Do not scrub over the incision. 2. Weight-bear as tolerated with walker / cane until follow-up. 3. Ice and elevate when necessary. Do not exceed 20 minutes per hour with ice pack. 4. Utilize compression sleeve until seen at first follow up appointment. 5. Visiting nursing care. 6. Home physical therapy. 7. Pain meds and anticoagulants per prescription. 8. Pain medication has potential to cause constipation. Increase oral fluid and fiber intake. Contact primary care provider if you have not had a bowel movement within 48 hours after discharge 9. No anti-inflammatory medication until discussed at first post operative visit, this including Motrin, Aleve, Mobic, Diclofenac. 10. Follow up in office at 2 weeks postop with Yuri Ansari PA-C 11. Follow up with your primary care doctor 7-10 days after discharge. 12. Contact [facility] with any questions, . Procedures: Right total hip arthroplasty Patient Condition at Discharge: Good Plan - Discharge Summary Discharge Rx Participant: Yes New Discharge Prescriptions: New Aspirin 325 mg PO BID #60 tab HYDROcodone/APAP 7.5-325MG [[place] 7.5] 1 each PO Q6HR PRN #30 tab PRN Reason: Pain No Action Multivitamins, Thera [Multivitamin (formulary)] 1 tab PO DAILY Lisinopril [Zestril] 5 mg PO HS Ezetimibe [Zetia] 10 mg PO HS [place] 450 mg PO DAILY PRN PRN Reason: Constipation Full Spectrum Mineral Cap 1 tab PO DAILY Acetaminophen Tab [Tylenol Tab] 500 mg PO Q6H PRN PRN Reason: Pain Discharge Medication List Casc[place] 450 mg PO DAILY PRN 11/15/17 [History] Ezetimibe [Zetia] 10 mg PO HS 11/15/17 [History] Lisinopril [Zestril] 5 mg PO HS 11/15/17 [History] Multivitamins, Thera [Multivitamin (formulary)] 1 tab PO DAILY 11/15/17 [History ] Acetaminophen Tab [Tylenol Tab] 500 mg PO Q6H PRN 03/22/18 [History] Full Spectrum Mineral Cap 1 tab PO DAILY 03/22/18 [History] Aspirin 325 mg PO BID #60 tab 04/02/18 [Rx] HYDROcodone/APAP 7.5-325MG [[place] 7.5] 1 each PO Q6HR PRN #30 tab 04/02/18 [Rx] Follow up Appointment(s)/Referral(s): Da Ansari PAC [PHYSICIAN RETAIL ACCOUNT SPECIALIST] - 04/17/18 1:50 pm Patient Instructions/Handouts: Anterior Hip Replacement (DC) Activity/Diet/Wound Care/Special Instructions: Orthopedic Discharge Instructions: 1. Wound care and infection precautions, keep incision dry and covered while showering, no lotions, creams, moisturizers. No soaking, pools, hot tubs. Do not scrub over incision. 2. Weight-bear as tolerated with walker / cane until follow-up. 3. Ice and elevate when necessary. Do not exceed 20 minutes per hour with ice pack. 4. Utilize compression sleeve until seen at first follow up appointment. 5. Visiting nursing care. 6. Home physical therapy including home CPM. 7. Pain meds and anticoagulants per prescription. 8. Pain medication has potential to cause constipation. Increase oral fluid and fiber intake. Contact primary care provider if you have not had a bowel movement within 48 hours after discharge. 9. No anti-inflammatory medication until discussed at first post operative visit, this including Motrin, Aleve, Mobic, Diclofenac. 10. Follow up in office at 2 weeks postop with Yuri Ansari PA-C 11. Follow up with your primary care doctor 7-10 days after discharge. 12. Contact [facility] with any questions, . Discharge Disposition: HOME WITH HOME HEALTH SERVICES
[2018-04-02] MEDS ORDERED: MULTIVITAMINS, THERA 1 EACH TAB PO SCH (12:00)
== END 2018-04-02 12:50 | disposition home health service (06) | DRG 470 ==
LOC: 2ORMAIN 05:38 → 3SUR 09:55
PROVIDERS: ADMIT Orthopaedic Surgery; ATTEND Orthopaedic Surgery
PROC: 0SR902A Replacement of Right Hip Joint with Metal on Polyethylene Synthetic Substitute, Uncemented, Open Approach (ICD-10-PCS; principal; 2018-04-01 07:30)
DX: M16.11 Unilateral primary osteoarthritis, right hip (principal); E78.5 Hyperlipidemia, unspecified; I10 Essential (primary) hypertension; I25.10 Atherosclerotic heart disease of native coronary artery without angina pectoris; Z87.891 Personal history of nicotine dependence; Z95.1 Presence of aortocoronary bypass graft; Z95.2 Presence of prosthetic heart valve; Z88.0 Allergy status to penicillin; Z88.2 Allergy status to sulfonamides; Z98.42 Cataract extraction status, left eye; Z98.41 Cataract extraction status, right eye; E66.9 Obesity, unspecified; Z71.3 Dietary counseling and surveillance; Z68.30 Body mass index [BMI] 30.0-30.9, adult; Z79.899 Other long term (current) drug therapy
CPT/HCPCS: 36415; 73501; 80048; 85025; 86850; 86900; 86901; 88300

== ENCOUNTER → 2019-07-18 | Outpatient (CLI) | payer MEDICARE, BC ==
--- NOTE | 2019-07-18 11:07 | FL ---
EXAMINATION TYPE: FL sniff test without CXR DATE OF EXAM: 07/18/2019 COMPARISON: NONE HISTORY: R06.2 shortness of breath TECHNIQUE: Fluoroscopy. 28 sec FL FINDINGS: Sniff test was performed with the the diaphragms observed during normal breathing and sniff ing. There is no evidence for paradoxical motion of the diaphragms upon sniffing or normal breathing. Mild elevation right hemidiaphragm. IMPRESSION: Mild elevation right hemidiaphragm without evidence for diaphragmatic paralysis.
--- NOTE | 2019-07-18 11:09 | CT ---
EXAMINATION TYPE: CT chest wo con DATE OF EXAM: 07/18/2019 COMPARISON: None HISTORY: Shortness of breath CT DLP: 459.40 mGycm High-resolution noncontrast CT of the chest was performed with the patient in the prone and supine po sitions. Lung and mediastinal window settings are submitted. The lungs appear to be well-aerated. Minimal elevation right hemidiaphragm relative to its right-aleksander ed counterpart. I do not see evidence for fibrotic change. There is no evidence for bronchiectasis, groundglass infiltrate, nodule or mass. No pleural effusion is identified. I do not see evidence f or hilar or mediastinal mass or adenopathy. Median sternotomy changes of CABG. Nonobstructing nephro lithiasis seen bilaterally. IMPRESSION: No significant abnormality is seen. Correlate clinically.
== END | disposition home or self-care (01) ==
LOC: RADFLMAIN 10:20
PROVIDERS: ATTEND Internal Medicine Critical Care Medicine
DX: J98.4 Other disorders of lung (principal); R06.02 Shortness of breath; Z88.0 Allergy status to penicillin; Z88.7 Allergy status to serum and vaccine
CPT/HCPCS: 71250; 76000

== ENCOUNTER 2020-12-12 00:09 | Observation (INO) | payer MEDICARE, BC ==
[2020-12-12] MEDS ORDERED: SODIUM CHLORIDE 0.9% 1,000 ML IV STA ×2 (00:20)
--- NOTE | 2020-12-12 00:20 | ED ---
Weakness HPI - General Stated complaint: Weakness Time Seen by Provider: 12/12/20 00:19 Source: RN notes reviewed, old records reviewed Limitations: no limitations - History of Present Illness Initial comments: This is a 72-year-old male DF for evaluation patient is presented to the ER for evaluation of severe left elbow pain. Patient has some other medical complaints including weakness decreased ambulation decreased activity level. Patient has a history of gout or recent diagnosis of gout in his left elbow pain is related completely gout at this point he has decreased range of motion in that left elbow and EMS noted a fever. MD Complaint: generalized weakness (Left elbow pain) -: days(s) Location: generalized, other (And left elbow pain with leg weakness) Severity: moderate Severity scale (1-10): 4 Consistency: constant Improves with: none Context: recent illness Associated Symptoms: fever/chills - Related Data Home Medications Medication Instructions Recorded Confirmed Cascara [place] 450 mg PO DAILY PRN 11/15/17 04/01/18 Ezetimibe [Zetia] 10 mg PO HS 11/15/17 04/01/18 Multivitamins, Thera [Multivitamin 1 tab PO DAILY 11/15/17 04/01/18 (formulary)] lisinopriL [Zestril] 5 mg PO HS 11/15/17 04/01/18 Full Spectrum Mineral Cap 1 tab PO DAILY 03/22/18 04/01/18 Previous Rx's Medication Instructions Recorded Aspirin 81 mg PO HS chew 04/02/18 Aspirin 325 mg PO BID #60 tab 04/02/18 HYDROcodone/APAP 7.5-325MG [[place] 1 each PO Q6HR PRN #30 tab 04/02/18 7.5] Allergies Allergy/AdvReac Type Severity Reaction Status Date / Time Penicillins Allergy Itching Verified 12/12/20 00:22 Review of Systems ROS Statement: Those systems with pertinent positive or pertinent negative responses have been documented in the HPI. ROS Other: All systems not noted in ROS Statement are negative. Past Medical History Past Medical History: Hyperlipidemia, Hypertension, Osteoarthritis (OA) Additional Past Medical History / Comment(s): hx. aortic aneursym, gout. History of Any Multi-Drug Resistant Organisms: None Reported Past Surgical History: Back Surgery, Coronary Bypass/CABG, Orthopedic Surgery Additional Past Surgical History / Comment(s): aortic valve replacement, thoracic aortic aneurysm repair, carpal tunnel, cataracts removed, TRHA Past Anesthesia/Blood Transfusion Reactions: No Reported Reaction Past Psychological History: No Psychological Hx Reported Past Alcohol Use History: Rare Additional Past Alcohol Use History / Comment(s): quit smoking @age of 35, smoked for 10 yrs. 1ppd Past Drug Use History: None Reported - Past Family History Brother(s) Family Medical History: Cancer General Exam General appearance: alert, in no apparent distress Head exam: Present: atraumatic, normocephalic, normal inspection Eye exam: Present: normal appearance, PERRL, EOMI. Absent: scleral icterus, conjunctival injection, periorbital swelling ENT exam: Present: normal exam, mucous membranes moist Neck exam: Present: normal inspection. Absent: tenderness, meningismus, lymphadenopathy Respiratory exam: Present: normal lung sounds bilaterally. Absent: respiratory distress, wheezes, rales, rhonchi, stridor Cardiovascular Exam: Present: regular rate, normal rhythm, normal heart sounds. Absent: systolic murmur, diastolic murmur, rubs, gallop, clicks GI/Abdominal exam: Present: soft, normal bowel sounds. Absent: distended, tenderness, guarding, rebound, rigid Extremities exam: Present: normal inspection, full ROM, normal capillary refill, other (Significant left elbow swelling redness, pain, decreased range of motion). Absent: tenderness, pedal edema, joint swelling, calf tenderness Back exam: Present: normal inspection Neurological exam: Present: alert, oriented X3, CN II-XII intact Psychiatric exam: Present: normal affect, normal mood Skin exam: Present: warm, dry, intact, normal color. Absent: rash Course Vital Signs 12/12/20 12/12/20 00:12 01:22 Temperature 100.2 F H Pulse Rate 80 79 Respiratory 15 16 Rate Blood Pressure 125/77 118/77 O2 Sat by Pulse 96 95 Oximetry - Reevaluation(s) Reevaluation #1: 12/12/20 02:13 Medical record is reviewed Reevaluation #2: 12/12/20 02:13 Patient has improved pain control, and proved symptom management - Consultations Consultation #1: Spoke with PMH agree to admit this patient EKG Findings - EKG Comments: EKG Findings:: EKG sinus rhythm 87, UT 170 QRS 88 QTc 421 Medical Decision Making - Medical Decision Making 80 male DF for evaluation of weakness altered mental status fever. Patient has cellulitis of left elbow on top of what he believes is gout elevated CRP will admit to rule out septic arthritis or worsening infection. Patient also was febrile here in the ER. Patient placed on IV antibiotics and admitted for further evaluation, orthopedic consult - Lab Data Result diagrams: 12/12/20 01:01 12/12/20 01:01 Lab Results 12/12/20 12/12/20 12/12/20 Range/Units 00:59 00:59 01:01 WBC 12.8 H (3.8-10.6) k/uL RBC 5.37 (4.30-5.90) m/uL Hgb 15.9 (13.0-17.5) gm/dL Hct 48.0 (39.0-53.0) % MCV 89.4 (80.0-100.0) fL MCH 29.6 (25.0-35.0) pg MCHC 33.1 (31.0-37.0) g/dL RDW 14.2 (11.5-15.5) % Plt Count 135 L (150-450) k/uL MPV 6.9 Neutrophils % 73 % Lymphocytes % 16 % Monocytes % 7 % Eosinophils % 1 % Basophils % 0 % Neutrophils # 9.4 H (1.3-7.7) k/uL Lymphocytes # 2.1 (1.0-4.8) k/uL Monocytes # 0.9 (0-1.0) k/uL Eosinophils # 0.1 (0-0.7) k/uL Basophils # 0.1 (0-0.2) k/uL ESR 12 (0-15) mm/hr PT (9.0-12.0) sec INR (<1.2) APTT (22.0-30.0) sec Sodium (137-145) mmol/L Potassium (3.5-5.1) mmol/L Chloride (98-107) mmol/L Carbon Dioxide (22-30) mmol/L Anion Gap mmol/L BUN (9-20) mg/dL Creatinine (0.66-1.25) mg/dL Est GFR (CKD-EPI)AfAm (>60 ml/min/1.73 sqM) Est GFR (CKD-EPI)NonAf (>60 ml/min/1.73 sqM) Glucose (74-99) mg/dL Plasma Lactic Acid Tariq (0.7-2.0) mmol/L Calcium (8.4-10.2) mg/dL Phosphorus (2.5-4.5) mg/dL Magnesium (1.6-2.3) mg/dL Total Bilirubin (0.2-1.3) mg/dL AST (17-59) U/L ALT (4-49) U/L Alkaline Phosphatase (38-126) U/L Creatine Kinase (55-170) U/L Troponin I (0.000-0.034) ng/mL C-Reactive Protein 152.2 H (<10.0) mg/L Total Protein (6.3-8.2) g/dL Albumin (3.5-5.0) g/dL TSH (0.465-4.680) mIU/L Urine Color Urine Appearance (Clear) Urine pH (5.0-8.0) Ur Specific [place] (1.001-1.035) Urine Protein (Negative) Urine Glucose (UA) (Negative) Urine Ketones (Negative) Urine Blood (Negative) Urine Nitrite (Negative) Urine Bilirubin (Negative) Urine Urobilinogen (<2.0) mg/dL Ur Leukocyte Esterase (Negative) 12/12/20 12/12/20 12/12/20 Range/Units 01:01 01:01 01:01 WBC (3.8-10.6) k/uL RBC (4.30-5.90) m/uL Hgb (13.0-17.5) gm/dL Hct (39.0-53.0) % MCV (80.0-100.0) fL MCH (25.0-35.0) pg MCHC (31.0-37.0) g/dL RDW (11.5-15.5) % Plt Count (150-450) k/uL MPV Neutrophils % % Lymphocytes % % Monocytes % % Eosinophils % % Basophils % % Neutrophils # (1.3-7.7) k/uL Lymphocytes # (1.0-4.8) k/uL Monocytes # (0-1.0) k/uL Eosinophils # (0-0.7) k/uL Basophils # (0-0.2) k/uL ESR (0-15) mm/hr PT 10.7 (9.0-12.0) sec INR 1.0 (<1.2) APTT 26.0 (22.0-30.0) sec Sodium 133 L (137-145) mmol/L Potassium 4.4 (3.5-5.1) mmol/L Chloride 104 (98-107) mmol/L Carbon Dioxide 22 (22-30) mmol/L Anion Gap 7 mmol/L BUN 15 (9-20) mg/dL Creatinine 0.90 (0.66-1.25) mg/dL Est GFR (CKD-EPI)AfAm >90 (>60 ml/min/1.73 sqM) Est GFR (CKD-EPI)NonAf 82 (>60 ml/min/1.73 sqM) Glucose 126 H (74-99) mg/dL Plasma Lactic Acid Tariq 1.9 (0.7-2.0) mmol/L Calcium 9.1 (8.4-10.2) mg/dL Phosphorus 3.1 (2.5-4.5) mg/dL Magnesium 1.9 (1.6-2.3) mg/dL Total Bilirubin 1.5 H (0.2-1.3) mg/dL AST 32 (17-59) U/L ALT 29 (4-49) U/L Alkaline Phosphatase 70 (38-126) U/L Creatine Kinase 56 (55-170) U/L Troponin I (0.000-0.034) ng/mL C-Reactive Protein (<10.0) mg/L Total Protein 6.5 (6.3-8.2) g/dL Albumin 3.5 (3.5-5.0) g/dL TSH 1.610 (0.465-4.680) mIU/L Urine Color Urine Appearance (Clear) Urine pH (5.0-8.0) Ur Specific [place] (1.001-1.035) Urine Protein (Negative) Urine Glucose (UA) (Negative) Urine Ketones (Negative) Urine Blood (Negative) Urine Nitrite (Negative) Urine Bilirubin (Negative) Urine Urobilinogen (<2.0) mg/dL Ur Leukocyte Esterase (Negative) 12/12/20 12/12/20 Range/Units 01:01 01:17 WBC (3.8-10.6) k/uL RBC (4.30-5.90) m/uL Hgb (13.0-17.5) gm/dL Hct (39.0-53.0) % MCV (80.0-100.0) fL MCH (25.0-35.0) pg MCHC (31.0-37.0) g/dL RDW (11.5-15.5) % Plt Count (150-450) k/uL MPV Neutrophils % % Lymphocytes % % Monocytes % % Eosinophils % % Basophils % % Neutrophils # (1.3-7.7) k/uL Lymphocytes # (1.0-4.8) k/uL Monocytes # (0-1.0) k/uL Eosinophils # (0-0.7) k/uL Basophils # (0-0.2) k/uL ESR (0-15) mm/hr PT (9.0-12.0) sec INR (<1.2) APTT (22.0-30.0) sec Sodium (137-145) mmol/L Potassium (3.5-5.1) mmol/L Chloride (98-107) mmol/L Carbon Dioxide (22-30) mmol/L Anion Gap mmol/L BUN (9-20) mg/dL Creatinine (0.66-1.25) mg/dL Est GFR (CKD-EPI)AfAm (>60 ml/min/1.73 sqM) Est GFR (CKD-EPI)NonAf (>60 ml/min/1.73 sqM) Glucose (74-99) mg/dL Plasma Lactic Acid Tariq (0.7-2.0) mmol/L Calcium (8.4-10.2) mg/dL Phosphorus (2.5-4.5) mg/dL Magnesium (1.6-2.3) mg/dL Total Bilirubin (0.2-1.3) mg/dL AST (17-59) U/L ALT (4-49) U/L Alkaline Phosphatase (38-126) U/L Creatine Kinase (55-170) U/L Troponin I <0.012 (0.000-0.034) ng/mL C-Reactive Protein (<10.0) mg/L Total Protein (6.3-8.2) g/dL Albumin (3.5-5.0) g/dL TSH (0.465-4.680) mIU/L Urine Color Yellow Urine Appearance Clear (Clear) Urine pH 7.0 (5.0-8.0) Ur Specific [place] 1.017 (1.001-1.035) Urine Protein Negative (Negative) Urine Glucose (UA) Negative (Negative) Urine Ketones Negative (Negative) Urine Blood Negative (Negative) Urine Nitrite Negative (Negative) Urine Bilirubin Negative (Negative) Urine Urobilinogen <2.0 (<2.0) mg/dL Ur Leukocyte Esterase Negative (Negative) - Radiology Data Radiology results: report reviewed (X-ray left elbow is negative for significant acute disease), image reviewed Disposition Clinical Impression: Cellulitis of left elbow, Fever Narrative: r/o Septis Arthritis Disposition: ADMITTED IP TO THIS [facility] Condition: Good Is patient prescribed a controlled substance at d/c from ED?: No Referrals: Nonstaff,Physician [REFERRING] - 1-2 days
[2020-12-12] MEDS ORDERED: MORPHINE SULFATE 4 MG/ML SYRINGE IVP STA (00:59)
[2020-12-12] MEDS ORDERED: KETOROLAC 15 MG/ML 1 ML VIAL IVP STA (01:03)
[2020-12-12] MEDS ORDERED: DEXAMETHASONE SOD PHOSPHATE 10 MG/ML 1 ML VIAL IV STA (01:03)
[2020-12-12] MEDS ORDERED: ACETAMINOPHEN TAB 500 MG TAB PO STA (01:04)
[2020-12-12 01:17] LABS: Basophils # (A) 0.1 k/uL (0-0.2); Basophils % (A) 0 %; Eosinophils # (A) 0.1 k/uL (0-0.7); Eosinophils % (A) 1 %; HGB 15.9 gm/dL (13.0-17.5); Lymphocytes # (A) 2.1 k/uL (1.0-4.8); Lymphocytes % (A) 16 %; MCH 29.6 pg (25.0-35.0); MCHC 33.1 g/dL (31.0-37.0); MCV 89.4 fL (80.0-100.0); Mean Platelet Volume 6.9; Monocytes # (A) 0.9 k/uL (0-1.0); Monocytes % (A) 7 %; Neutrophils # (A) 9.4 k/uL (1.3-7.7); Neutrophils % (A) 73 %; Platelet Count 135 k/uL (150-450); RBC 5.37 m/uL (4.30-5.90); RDW 14.2 % (11.5-15.5); WBC 12.8 k/uL (3.8-10.6)
[2020-12-12 01:19] LABS: ALT 29 U/L (4-49); AST 32 U/L (17-59); African American GFR (CKD) >90 (>60 ml/min/1.73 sqM); Albumin 3.5 g/dL (3.5-5.0); Alkaline Phosphatase 70 U/L (38-126); Anion Gap 7 mmol/L; Blood Urea Nitrogen 15 mg/dL (9-20); Calcium 9.1 mg/dL (8.4-10.2); Carbon Dioxide 22 mmol/L (22-30); Chloride 104 mmol/L (98-107); Creatine Kinase 56 U/L (55-170); Glucose 126 mg/dL (74-99); Magnesium 1.9 mg/dL (1.6-2.3); Non-African American GFR(CKD) 82 (>60 ml/min/1.73 sqM); Phosphorus 3.1 mg/dL (2.5-4.5); Potassium 4.4 mmol/L (3.5-5.1); Sodium 133 mmol/L (137-145); Total Bilirubin 1.5 mg/dL (0.2-1.3); Total Protein 6.5 g/dL (6.3-8.2)
[2020-12-12 01:22] LABS: Appearance,Urine Clear (Clear); Bilirubin,Urine Negative (Negative); Blood,Urine Negative (Negative); Color,Urine Yellow; Glucose,Urine (UA) Negative (Negative); Ketones,Urine Negative (Negative); Leukocyte Esterase,Urine Negative (Negative); Nitrite,Urine Negative (Negative); Protein,Urine Negative (Negative); Specific Gravity,Urine 1.017 (1.001-1.035); Urobilinogen,Urine <2.0 mg/dL (<2.0)
[2020-12-12 01:23] LABS: Prothrombin Time 10.7 sec (9.0-12.0)
[2020-12-12] MEDS ORDERED: VANCOMYCIN IV PER PHARMACY 1 EACH MISC MISCELLANE PRN (02:10)
[2020-12-12] MEDS ORDERED: MORPHINE SULFATE 4 MG/ML SYRINGE IVP PRN (02:10)
[2020-12-12] MEDS ORDERED: VANCOMYCIN 1,500 MG in SODIUM CHLORIDE 0.9% 250 ML IVPB STA (02:12)
[2020-12-12] MEDS ORDERED: NALOXONE 0.4 MG/ML 1 ML VIAL IV PRN (02:15)
--- NOTE | 2020-12-12 02:22 | XR ---
EXAM: XR Left Elbow Complete, 3 or More Views CLINICAL HISTORY: Pain. TECHNIQUE: Frontal, lateral and oblique views of the left elbow. COMPARISON: No relevant prior studies available. FINDINGS: Bones/joints: Appearance of some lysis of the cortical margin of the lateral aspect of the lateral condyle and epicondyle. There is a joint effusion at the elbow. No acute fracture or dislocation. Soft tissues: Appearance of diffuse soft tissue edema. IMPRESSION: Appearance of some lysis of the cortical margin of the lateral aspect of the lateral condyle and epicondyle. This is nonspecific and may be due to tendon ligament stress or inflammation. Infection is possible. Soft tissue swelling and joint effusion.
--- NOTE | 2020-12-12 02:26 | XR ---
EXAM: XR Chest, 2 Views CLINICAL HISTORY: Weakness TECHNIQUE: Frontal and lateral views of the chest. COMPARISON: July 17, 2019. FINDINGS: Lungs: Unremarkable. No infiltration, atelectasis or mass density. Pleural space: Unremarkable. No pneumothorax. No pleural fluid. Heart: Unremarkable. No cardiomegaly. Mediastinum: Unremarkable. Bones/joints: Previous sternotomy and heart valve replacement. IMPRESSION: No acute findings in the chest.
[2020-12-12] MEDS ORDERED: KETOROLAC 15 MG/ML 1 ML VIAL IVP PRN (12:59)
--- NOTE | 2020-12-12 13:49 | P.HPIM ---
History of Present Illness Patient is a pleasant 72-year-old male came in with complaints of left elbow pain patient has been going on for about 2 years on and off and the patient it's been the really severe as yesterday patient also had low-grade fever. Patient was a valid by orthopedic surgery for possible diagnosis of either gout or bursitis. As infection cannot be ruled out patient is being continued on antibiotics patient probably will undergo incision and drainage or aspiration of the fluid and possible analysis after that. Patient is a presently on vancomycin and Rocephin. Review of Systems REVIEW OF SYSTEMS: CONSTITUTIONAL: No fever, no malaise, no fatigue. HEENT: No recent visual problems or hearing problems. Denied any sore throat. CARDIOVASCULAR: No chest pain, orthopnea, PND, no palpitations, no syncope. PULMONARY: No shortness of breath, no cough, no hemoptysis. GASTROINTESTINAL: No diarrhea, no nausea, no vomiting, no abdominal pain. NEUROLOGICAL: No headaches, no weakness, no numbness. HEMATOLOGICAL: Denies any bleeding or petechiae. GENITOURINARY: Denies any burning micturition, frequency, or urgency. MUSCULOSKELETAL/RHEUMATOLOGICAL: As mentioned in HPI. In the left elbow ENDOCRINE: Denies any polyuria or polydipsia. The rest of the 14-point review of systems is negative. Past Medical History Past Medical History: Hyperlipidemia, Hypertension, Osteoarthritis (OA) Additional Past Medical History / Comment(s): hx. aortic aneursym, gout. History of Any Multi-Drug Resistant Organisms: None Reported Past Surgical History: Back Surgery, Coronary Bypass/CABG, Orthopedic Surgery Additional Past Surgical History / Comment(s): aortic valve replacement, thoracic aortic aneurysm repair, carpal tunnel, cataracts removed, TRHA Past Anesthesia/Blood Transfusion Reactions: No Reported Reaction Past Psychological History: No Psychological Hx Reported Smoking Status: Former smoker Past Alcohol Use History: Rare Additional Past Alcohol Use History / Comment(s): quit smoking @age of 35, smoked for 10 yrs. 1ppd Past Drug Use History: None Reported - Past Family History Brother(s) Family Medical History: Cancer Medications and Allergies Home Medications Medication Instructions Recorded Confirmed Type Ezetimibe [Zetia] 10 mg PO HS 11/15/17 12/12/20 History Apixaban [Eliquis] 2.5 mg PO BID 12/12/20 12/12/20 History Cholecalciferol [Vitamin D3 (25 2,000 unit PO DAILY 12/12/20 12/12/20 History Mcg = 1000 Iu)] Cyanocobalamin/Cobamamide [Vitamin 1 tab SL BID 12/12/20 12/12/20 History B-12 5,000 Mcg Tab Sl] Evolocumab [Repatha Sureclick] 140 mg SQ Q14D 12/12/20 12/12/20 History Oxybutynin Chloride 5 mg PO BID 12/12/20 12/12/20 History amLODIPine [Norvasc] 5 mg PO DAILY 12/12/20 12/12/20 History Allergies Allergy/AdvReac Type Severity Reaction Status Date / Time Penicillins Allergy Itching Verified 12/12/20 07:14 Physical Exam Vitals: Vital Signs Temp Pulse Pulse Resp BP BP Pulse Ox 12/12/20 09:00 97.7 F 65 16 95/61 96 12/12/20 03:15 97.7 F 68 120/72 93 L 12/12/20 02:00 98.7 F 12/12/20 01:22 79 16 118/77 95 12/12/20 00:12 100.2 F H 80 15 125/77 96 Intake and Output 12/11/20 12/12/20 12/12/20 22:59 06:59 14:59 Intake Total 400 Output Total 75 150 Balance 325 -150 Intake: Oral 400 Output: Urine 75 150 Other: # Voids 1 1 Weight 95.254 kg PHYSICAL EXAMINATION: GENERAL: The patient is alert and oriented x3, not in any acute distress. Well developed, well nourished. HEENT: Pupils are round and equally reacting to light. EOMI. No scleral icterus. No conjunctival pallor. Normocephalic, atraumatic. No pharyngeal erythema. No thyromegaly. CARDIOVASCULAR: S1 and S2 present. No murmurs, rubs, or gallops. PULMONARY: Chest is clear to auscultation, no wheezing or crackles. ABDOMEN: Soft, nontender, nondistended, normoactive bowel sounds. No palpable organomegaly. MUSCULOSKELETAL: She has swelling or redness local is of temperature limitation of active and passive movements of the left elbow secondary to the swelling. EXTREMITIES: No cyanosis, clubbing, or pedal edema. NEUROLOGICAL: Gross neurological examination did not reveal any focal deficits. SKIN: No rashes. Results CBC & Chem 7: 12/12/20 01:01 12/12/20 01:01 Labs: Abnormal Lab Results - Last 24 Hours (Table) 12/12/20 12/12/20 12/12/20 Range/Units 00:59 01:01 01:01 WBC 12.8 H (3.8-10.6) k/uL Plt Count 135 L (150-450) k/uL Neutrophils # 9.4 H (1.3-7.7) k/uL Sodium 133 L (137-145) mmol/L Glucose 126 H (74-99) mg/dL Total Bilirubin 1.5 H (0.2-1.3) mg/dL C-Reactive Protein 152.2 H (<10.0) mg/L Thrombosis Risk Factor Assmnt - Choose All That Apply Each Factor Represents 1 point: Obesity (BMI >25) Each Risk Factor Represents 3 Points: Age 75 years or older Thrombosis Risk Factor Assessment Total Risk Factor Score: 4 Thrombosis Risk Factor Assessment Level: Moderate Risk Assessment and Plan Plan: -Left elbow pain: Possibility of gout or olecranon bursitis continue with antibiotics orthopedic surgery evaluated the patient. Continue with vancomycin and Rocephin will be discontinued -Hyperlipidemia -hypertension: Patient blood pressure is low because of which amlodipine will be held. -Coronary artery disease with CABG in the past history of aortic valve replacement. Patient had aortic aneurysm as well. -DVT to prophylaxis Lovenox
--- NOTE | 2020-12-12 14:47 | P.CNOR ---
History of Present Illness - [facility] Consult date: 12/12/20 Consult reason: joint pain History of present illness: Patient is a 80-year-old male who presented to [facility] late last evening due to increasing pain of his left elbow. Patient states that the elbow has been bothering him for the last week or so, over the last few days it is increased in pain. Patient denies any recent trauma the left elbow. Lab testing and imaging were done upon arrival, images have demonstrated no acute fractures or dislocations on report. Labs demonstrated an elevated white blood cell count along with CRP. Patient was admitted under internal medicine with our orthopedic team on consult for possible infection involving the left elbow. Patient was evaluated today in the observation unit, Dr. Cortes was also available to examine the patient. Patient is resting comfortably, with the IV pain medication as he is receiving he notes improvement in the pain. Patient states that he has had a history of gout both in his left foot and he states also his left elbow. He's had this elbow issue in the past, he states by 3 or 4 times. He has never received treatment in the past for this problem, he just waits it out and it goes away. Patient denies any recent fever or chills, he denies being sick recently with any viral or bacterial infection. He has a history of a direct anterior right total hip arthroplasty that was done back in 2018, he has no issues with that. Patient has been able to active move the elbow, this doesn't reproduce as much pain. He notes most of the pain when he touches the posterior aspect of the elbow or rested on something. He denies any pain involving the left shoulder, left hand or wrist. He denies any pain or similar symptoms of the right upper extremity. Currently patient denies any headaches, lightheadedness, fever, chills, nausea vomiting, abdominal pain, bilateral upper extremity paresthesias or pain. Review of Systems Constitutional: Reports as per HPI Past Medical History Past Medical History: Hyperlipidemia, Hypertension, Osteoarthritis (OA) Additional Past Medical History / Comment(s): hx. aortic aneursym, gout. History of Any Multi-Drug Resistant Organisms: None Reported Past Surgical History: Back Surgery, Coronary Bypass/CABG, Orthopedic Surgery Additional Past Surgical History / Comment(s): aortic valve replacement, thoracic aortic aneurysm repair, carpal tunnel, cataracts removed, TRHA Past Anesthesia/Blood Transfusion Reactions: No Reported Reaction Past Psychological History: No Psychological Hx Reported Smoking Status: Former smoker Past Alcohol Use History: Rare Additional Past Alcohol Use History / Comment(s): quit smoking @age of 35, smoked for 10 yrs. 1ppd Past Drug Use History: None Reported - Past Family History Brother(s) Family Medical History: Cancer Medications and Allergies Home Medications Medication Instructions Recorded Confirmed Type Ezetimibe [Zetia] 10 mg PO HS 11/15/17 12/12/20 History Apixaban [Eliquis] 2.5 mg PO BID 12/12/20 12/12/20 History Cholecalciferol [Vitamin D3 (25 2,000 unit PO DAILY 12/12/20 12/12/20 History Mcg = 1000 Iu)] Cyanocobalamin/Cobamamide [Vitamin 1 tab SL BID 12/12/20 12/12/20 History B-12 5,000 Mcg Tab Sl] Evolocumab [Repatha Sureclick] 140 mg SQ Q14D 12/12/20 12/12/20 History Oxybutynin Chloride 5 mg PO BID 12/12/20 12/12/20 History amLODIPine [Norvasc] 5 mg PO DAILY 12/12/20 12/12/20 History Allergies Allergy/AdvReac Type Severity Reaction Status Date / Time Penicillins Allergy Itching Verified 12/12/20 07:14 Physical Examination Left upper extremity: There are no obvious open lesions or sores present There is notable soft tissue swelling more over the lateral and posterior aspect of the elbow. There is also erythema noted in this area. Significant tenderness with palpation noted over the olecranon/olecranon bursal region Patient is nontender throughout the hand and wrist, forearm, upper arm, shoulder Passive range of motion and active range of motion including extension, flexion of the elbow, pronation and supination of the forearm reproduce no elbow pain Sensory exam to light touch is intact about the extremity Radial and ulnar pulses are 2+ Results - Labs Labs: Abnormal Lab Results - Last 24 Hours (Table) 12/12/20 12/12/20 12/12/20 Range/Units 00:59 01:01 01:01 WBC 12.8 H (3.8-10.6) k/uL Plt Count 135 L (150-450) k/uL Neutrophils # 9.4 H (1.3-7.7) k/uL Sodium 133 L (137-145) mmol/L Glucose 126 H (74-99) mg/dL Total Bilirubin 1.5 H (0.2-1.3) mg/dL C-Reactive Protein 152.2 H (<10.0) mg/L H & H 12/12/20 Range/Units 01:01 Hgb 15.9 (13.0-17.5) gm/dL Hct 48.0 (39.0-53.0) % Coagulation 12/12/20 Range/Units 01:01 INR 1.0 (<1.2) Result Diagrams: 12/12/20 01:01 12/12/20 01:01 - Diagnostic results Elbow x-ray: report reviewed, image reviewed Assessment and Plan Assessment: Left elbow pain Left elbow aseptic versus gouty versus septic olecranon bursitis Low suspicion for left elbow septic arthropathy Other medical comorbidities Plan: Dr. Cortes was present at bedside to discuss treatment options with patient. No emergent orthopedic surgical intervention recommended at this time Recommend continuation of IV antibiotics at this time Internal medicine recommendations, discuss with nursing the possibility of using a antigout medication like colchicine. Would like internal medicine's input on this prior to administration. Ice and elevate her symptomatically Pain control, continue current medication GI and DVT prophylaxis per primary medical service We'll keep patient nothing by mouth after midnight and recheck symptoms 12/13/2020 Further recommendations to follow Time with Patient: Less than 30
[2020-12-12] MEDS ORDERED: VANCOMYCIN 1,500 MG in SODIUM CHLORIDE 0.9% 250 ML IVPB SCH (15:00)
[2020-12-12] MEDS: VANCOMYCIN 1,500 MG in SODIUM CHLORIDE 0.9% 250 ML IVPB SCH (18:27)
[2020-12-12] MEDS ORDERED: EZETIMIBE 10 MG TAB PO SCH (21:00)
[2020-12-12] MEDS: OXYBUTYNIN CHLORIDE 5 MG TAB PO SCH (21:12)
[2020-12-12] MEDS: FAMOTIDINE 20 MG TAB PO SCH (21:12)
[2020-12-13 02:28] LABS: Glucose,Whole Blood 146 mg/dL (75-99)
[2020-12-13] MEDS: VANCOMYCIN 1,500 MG in SODIUM CHLORIDE 0.9% 250 ML IVPB SCH (04:21)
[2020-12-13 07:59] LABS: Basophils % (A) 0 %; Eosinophils % (A) 0 %; HCT 41.6 % (39.0-53.0); HGB 14.1 gm/dL (13.0-17.5); Lymphocytes # (A) 0.8 k/uL (1.0-4.8); Lymphocytes % (A) 5 %; MCH 30.6 pg (25.0-35.0); MCHC 33.9 g/dL (31.0-37.0); MCV 90.3 fL (80.0-100.0); Mean Platelet Volume 7.5; Monocytes # (A) 0.6 k/uL (0-1.0); Monocytes % (A) 4 %; Neutrophils # (A) 12.7 k/uL (1.3-7.7); Neutrophils % (A) 90 %; Platelet Count 111 k/uL (150-450); RBC 4.61 m/uL (4.30-5.90); RDW 13.7 % (11.5-15.5); WBC 14.2 k/uL (3.8-10.6)
[2020-12-13 08:07] LABS: African American GFR (CKD) >90 (>60 ml/min/1.73 sqM); Non-African American GFR(CKD) 84 (>60 ml/min/1.73 sqM)
[2020-12-13] MEDS: FAMOTIDINE 20 MG TAB PO SCH (08:32)
[2020-12-13] MEDS: OXYBUTYNIN CHLORIDE 5 MG TAB PO SCH (08:32)
[2020-12-13 08:52] VITALS: BP 116/75; PULSE 74; RESP 18; TEMP 97.5
[2020-12-13] MEDS ORDERED: ENOXAPARIN 40 MG/0.4 ML SYRINGE SQ SCH (09:00)
[2020-12-13 09:19] LABS: C Reactive Protein 150.2 mg/L (<10.0)
--- NOTE | 2020-12-13 10:05 | P.PN ---
Subjective Progress Note Date: 12/13/20 Principal diagnosis: Left elbow olecranon bursitis Patient was examined early this morning in the observation unit. He is resting comfortable. He notes significant improvement in the left elbow overnight. He did receive a dose of Toradol. Patient denies any fevers or chills at this point. He denies any worsening symptoms in the left elbow. He denies any headaches, lightheadedness, chest pain or shortness of breath. Objective - Vital Signs Vital signs: Vital Signs Temp 97.5 F L 12/13/20 08:50 Pulse 74 12/13/20 08:50 Resp 18 12/13/20 08:50 BP 116/75 12/13/20 08:50 Pulse Ox 96 12/13/20 08:50 Intake & Output 12/12/20 12/13/20 12/13/20 18:59 06:59 18:59 Intake Total 240 Output Total 150 Balance -150 240 Intake: Oral 240 Output: Urine 150 Other: Voiding Method Toilet Toilet Urinal Urinal # Voids 1 1 - Exam Left upper extremity: Erythema surrounding the elbow has improved, soft tissue swelling is also improved. Passive and active motion remains full with regards to elbow extension and flexion, along with pronation and supination of the forearm. Patient has minimal tenderness with palpation over the olecranon and surrounding elbow. Patient demonstrates no tenderness with palpation of the forearm, hand or wrist. He demonstrates no tenderness with palpation of the proximal humerus or shoulder. Sensory exam to light touch throughout the extremity is intact, radial and ulnar pulses are 2+ - Labs CBC & Chem 7: 12/13/20 07:29 12/13/20 07:29 Labs: Abnormal Lab Results - Last 24 Hours (Table) 12/13/20 12/13/20 12/13/20 Range/Units 02:26 07:29 07:29 WBC 14.2 H (3.8-10.6) k/uL Plt Count 111 L (150-450) k/uL Neutrophils # 12.7 H (1.3-7.7) k/uL Lymphocytes # 0.8 L (1.0-4.8) k/uL POC Glucose (mg/dL) 146 H (75-99) mg/dL C-Reactive Protein 150.2 H (<10.0) mg/L Microbiology - Last 24 Hours (Table) 12/12/20 01:47 Blood Culture - Preliminary Blood No Growth after 24 hours Assessment and Plan Assessment: Left elbow pain Left elbow aseptic versus gouty versus septic olecranon bursitis Low suspicion for left elbow septic arthropathy Other medical comorbidities Plan: Patient symptoms significantly improved overnight. Higher concern for gout r elated olecranon bursitis. Recommend antigout medication Ice and elevate her symptomatically Pain control, continue current medication GI and DVT prophylaxis per primary medical service We'll continue to follow patient in inpatient stay. Time with Patient: Less than 30
--- NOTE | 2020-12-13 14:57 | P.DS ---
Providers Date of admission: 12/12/20 02:15 Attending physician: Percy Colunga Consults: 12/12/20 02:15 Consult Physician Routine Consulting Provider: Arun Cortes Consult Reason/Comments: LelbowR?Osepticarthritis Do you want consulting provider notified?: Yes Primary care physician: Yared [facility] Course: Patient is a pleasant 72-year-old male came in with complaints of left elbow pa in patient has been going on for about 2 years on and off and the patient it's been the really severe as yesterday patient also had low-grade fever. Patient was a valid by orthopedic surgery for possible diagnosis of either gout or bursitis. As infection cannot be ruled out patient is being continued on antibiotics patient probably will undergo incision and drainage or aspiration of the fluid and possible analysis after that. Patient is a presently on vancomycin and Rocephin. 12/13/2019 Patient has significant improvement in redness and swelling of the left elbow. Patient appears to have gout rather than infection. Patient feels much better. Patient will be discharged today on anti-inflammatory medications along with the GI prophylaxis and patient will follow with PCP and orthopedic surgery as an outpatient. She is also on low-dose Eliquis. Patient was instructed if he has any bleed. Both penicillins and Eliquis and call PCP or come back to the hospital. PHYSICAL EXAMINATION: GENERAL: The patient is alert and oriented x3, not in any acute distress. Well developed, well nourished. HEENT: Pupils are round and equally reacting to light. EOMI. No scleral icterus. No conjunctival pallor. Normocephalic, atraumatic. No pharyngeal erythema. No thyromegaly. CARDIOVASCULAR: S1 and S2 present. No murmurs, rubs, or gallops. PULMONARY: Chest is clear to auscultation, no wheezing or crackles. ABDOMEN: Soft, nontender, nondistended, normoactive bowel sounds. No palpable organomegaly. MUSCULOSKELETAL: She has swelling or redness local is of temperature limitation of active and passive movements of the left elbow secondary to the swelling. EXTREMITIES: No cyanosis, clubbing, or pedal edema. NEUROLOGICAL: Gross neurological examination did not reveal any focal deficits. SKIN: No rashes. Assessment and Plan Plan: -Left elbow pain: Possibility of gout and the possibility of infection is extremely low because of which antibiotics will be discontinued -Hyperlipidemia -hypertension: -Coronary artery disease with CABG in the past history of aortic valve replacement. Patient had aortic aneurysm as well. Patient Condition at Discharge: Good Plan - Discharge Summary New Discharge Prescriptions: New Naproxen [Naprosyn] 375 mg PO Q12HR #30 tablet Famotidine [Pepcid] 20 mg PO BID #30 tab Continue Ezetimibe [Zetia] 10 mg PO HS Cholecalciferol [Vitamin D3 (25 Mcg = 1000 Iu)] 2,000 unit PO DAILY Oxybutynin Chloride 5 mg PO BID Cyanocobalamin/Cobamamide [Vitamin B-12 5,000 Mcg Tab Sl] 1 tab SL BID Apixaban [Eliquis] 2.5 mg PO BID Evolocumab [Repatha Sureclick] 140 mg SQ Q14D Discontinued amLODIPine [Norvasc] 5 mg PO DAILY Discharge Medication List Ezetimibe [Zetia] 10 mg PO HS 11/15/17 [History] Apixaban [Eliquis] 2.5 mg PO BID 12/12/20 [History] Cholecalciferol [Vitamin D3 (25 Mcg = 1000 Iu)] 2,000 unit PO DAILY 12/12/20 [History] Cyanocobalamin/Cobamamide [Vitamin B-12 5,000 Mcg Tab Sl] 1 tab SL BID 12/12/20 [History] Evolocumab [Repatha Sureclick] 140 mg SQ Q14D 12/12/20 [History] Oxybutynin Chloride 5 mg PO BID 12/12/20 [History] Famotidine [Pepcid] 20 mg PO BID #30 tab 12/13/20 [Rx] Naproxen [Naprosyn] 375 mg PO Q12HR #30 tablet 12/13/20 [Rx] Follow up Appointment(s)/Referral(s): Arun Cortes DO [Doctor of Osteopathic Medicine] - 12/28/20 9:20 am Patient Instructions/Handouts: Elbow Bursitis (GEN), Gout (GEN) Activity/Diet/Wound Care/Special Instructions: Orthopedic discharge instructions: 1. Utilize anti-inflammatory medication as needed 2. Ice the elbow as needed 3. Plan for follow-up Dr. Cortes the next 7-10 days for recheck 4. Please contact [phone] with any questions Discharge Disposition: HOME SELF-CARE
[2020-12-14] MEDS ORDERED: VANCOMYCIN TROUGH DUE 1 EACH MISC MISCELLANE ONE (15:00)
== END 2020-12-13 15:53 | disposition home or self-care (01) ==
LOC: SUPCPDRO 00:09 → EC 00:09 → 1SOBS 02:15
PROVIDERS: ADMIT Hospitalist; ATTEND Hospitalist
DX: M25.522 Pain in left elbow (principal); R50.9 Fever, unspecified; D72.829 Elevated white blood cell count, unspecified; E78.5 Hyperlipidemia, unspecified; M19.90 Unspecified osteoarthritis, unspecified site; I25.10 Atherosclerotic heart disease of native coronary artery without angina pectoris; I10 Essential (primary) hypertension; E66.9 Obesity, unspecified; Z68.28 Body mass index [BMI] 28.0-28.9, adult; Z95.1 Presence of aortocoronary bypass graft; Z95.2 Presence of prosthetic heart valve; Z86.79 Personal history of other diseases of the circulatory system; Z87.39 Personal history of other diseases of the musculoskeletal system and connective tissue; Z98.49 Cataract extraction status, unspecified eye; Z96.641 Presence of right artificial hip joint; Z87.891 Personal history of nicotine dependence; Z80.9 Family history of malignant neoplasm, unspecified; Z79.01 Long term (current) use of anticoagulants; Z79.899 Other long term (current) drug therapy; Z88.0 Allergy status to penicillin
CPT/HCPCS: 96366 ×2; 96367; 96376; 96361; 96365; 96375; 99285; 36415; 93005; 80053; 85652; 82565; 82550; 83605; 83735; 84100; 84443; 84550; 84484; 85025 ×2; 85610; 85730; 86140 ×2; 81003; 87040; 73070; 71046; G0378 ×2; J3370 ×2; J2270; J1100; J0696 ×2; J1885